=== PATIENT | female | born 1990 | race Caucasian/White ===

== ENCOUNTER 2020-05-05 14:37 | Emergency (ER) | payer SELFPAY ==
[2020-05-05 14:47] VITALS: BP 118/81; PULSE 89; RESP 18; TEMP 36.9; O2SAT 99; BMI 20.5
[2020-05-05 15:36] VITALS: O2SAT 99
--- NOTE | 2020-05-05 15:36 | CT_ITS ---
WS: [id number] CT abdomen pelvis w con* [id number] REASON FOR EXAM: abd pain IV CONTRAST ADMINISTERED: Omnipaque 300, 95 mL TOTAL EXAM DLP: 511.[address] scans at [facility] use at least one of these dose optimization techniques: automat ed exposure control; mA and/or kV adjustment per patient size (includes targeted exams where dose is matched to clinical indication); or iterative reconstruction. FINDINGS: The heart was normal. There is no inflammatory changes in the lower lungs. The liver showed no infiltrating changes. No masses. The gallbladder is somewhat contracted. There is considerable debris in the stomach. But no outlet obstructive changes. The spleen is normal. The right and left adrenal glands were normal. The aorta inferior vena cava were normal. The right and left kidneys show normal appearance no hydronephrosis no hydroureters no dilatation of the pelvis are ureters. The right colon shows fecal stasis the appendix was normal. Small large and small bowel pattern were normal. In the descending colon show no diverticular disease . In the pelvis a small ovarian cyst is seen measures 1.74 cm a thickened rind surrounds the cysts. The left side showed no adnexal masses. The uterus was normal. There is no free fluid in the cul-de-sac or pelvis seen. The rectosigmoid was normal. The urinary bladder was normal. The lumbar spine bony pelvis were normal. CT/CT abdomen pelvis w con* [id number] IMPRESSION: Benign right ovarian cyst The remaining abdomen pelvis appear to be normal.
--- NOTE | 2020-05-05 15:37 | ED_ITS ---
HPI - Abdominal Pain General: Chief Complaint: Abdominal Pain Stated Complaint: abd pain Time Seen by Provider: 05/05/20 14:54 History of Present Illness: HPI narrative: 29-year-old female clinically right lower quadrant abdominal pain for the last week. She has a history of ovarian cyst that she had which initially describes a tumor removed on the left and had something on the right she was Foltabs surgically treated but she was not able to do it due to some logistical and financial concerns. She has had a tubal ligation 2018 she had her last period ended 4 days ago she feels very heavy for her. She also endometriosis. She says a lot of nausea with no vomiting she denies any fever sweats or chills. She denies any urinary tract symptoms. She has had a very poor appetite. She states pain initially began in that right lower quadrant and has remained there. MD elicited complaint: abdominal pain Pertinent past history: other (Ovarian cysts) Onset (ago): week(s) (1) Pain Consistency: constant Location: RLQ Severity: severe Quality: cramping and stabbing Radiation: RLQ Exacerbating factors: movement Relieving factors: rest Associated Symptoms: Reports anorexia, bloating, GI cramping, nausea and poor appetite; Denies coffee ground emesis, constipation, diarrhea, dyspepsia, dysuria, fe shanon(s), heartburn, hematochezia, hematuria, hematemesis, fecal incontinence, loose stools, melena and vomiting Review of Systems Const: Denies: fever(s) ENMT: Denies: throat pain, ear or mastoid pain, nasal discharge or nasal congestion Card: Denies: chest pain, edema, dyspnea on exertion or orthopnea Resp: Denies: dyspnea, productive cough or non-productive cough GI: Reports: nausea, bloating and GI cramping; Denies: vomiting, hematemesis, coffee ground emesis, heartburn, diarrhea, constipation, fecal incontinence, hematochezia or melena : Denies: dysuria or hematuria Skin/Breast: Denies: rash or pruritus PFSH ED PFSH: Medical History (Updated 05/05/20 @ 17:03 by Loyd Smith DO) Endometriosis Tubal ligation evaluation Surgical History (Updated 05/05/20 @ 15:43 by Loyd Smith DO) History of left oophorectomy Previous section X3 Social History Smoking and tobacco status: current every day smoker Physical Exam Const: COMMON NORMALS: no acute distress GENERAL APPEARANCE: cooperative and comfortable ORIENTATION/CONSCIOUSNESS: Yes awake, Yes oriented to person, Yes oriented to place and Yes oriented to time HENMT: COMMON NORMALS: normocephalic, atraumatic, hearing grossly normal bilat erally, external ears normal, EAC's normal, TM's normal bilaterally, Normal nasal mucous membranes and turbinates present, moist oral mucous membranes and oropharynx normal HEAD & SCALP: normocephalic and atraumatic NOSE: Normal nasal mucous membranes and turbinates present EXTERNAL EAR: Yes external ears normal EXTERNAL AUDITORY CANAL: EAC's normal TYMPANIC MEMBRANE: TM's normal bilaterally Eye: COMMON NORMALS: Equal, round and reactive pupils present, EOMs intact bilaterally, conjunctivae normal and no scleral icterus CONJUNCTIVA: Yes conjunctivae normal PUPIL: Yes Equal, round and reactive pupils present Neck/C-Spine: COMMON NORMALS: full ROM, no lymphadenopathy, supple and no JVD Lymph: LYMPHATIC: no lymphadenopathy noted and no lymphedema noted Resp: COMMON NORMALS: normal respiratory effort, No retractions, No use of accessory muscles and clear to auscultation bilaterally AUSCULTATION: clear to auscultation bilaterally Cardio: COMMON NORMALS: no JVD, regular rate, regular rhythm and No murmurs present (Cardio) RATE: regular rate RHYTHM: regular rhythm GI: COMMON NORMALS: No hepatosplenomegaly present AUSCULTATION: Yes normoactive bowel sounds PALPATION: Yes Tenderness to palpation present (GI) Details: RLQ, Yes Guarding due to palpation present (GI), Yes No hepatosplenomegaly present and Yes Other GI palpation findings present (Positive Rovsing sign) PERCUSSION: Other (Severe pain to percussion of the right lower quadrant) Extremity: COMMON NORMALS: normal to inspection, capillary refill normal, no clubbing, cyanosis or edema, no calf tenderness and no pedal edema Neuro: SENSORIUM/ORIENTATION: Yes oriented to person, Yes oriented to place and Yes oriented to time Skin: COMMON NORMALS: no rashes or lesions noted GENERAL SKIN EXAM: no rashes or lesions noted Course Vital Signs: Vital signs: Vital Signs Temperature 98.5 F 05/05/20 14:47 Pulse Rate 75 05/05/20 17:50 Respiratory Rate 18 05/05/20 14:47 Blood Pressure 107/74 05/05/20 17:50 Pulse Oximetry 98 05/05/20 17:50 MDM - Abdominal Pain MDM Narrative: Medical decision making narrative: Small ovarian cyst on the left otherwise unremarkable at this point I think she can discharge home we will give her pain medications anti-inflammatories and Zofran minimal activity she tells me she has an appoint with Dr. Navas in the morning and think she should definitely keep that return if she has further problems Lab Data: Labs: Lab Results 05/05/20 05/05/20 05/05/20 Range/Units 15:40 15:40 15:40 WBC 4.3 (4.0-10.0) 10^3/ uL RBC 4.07 L (4.1-5.3) 10^6/u L Hgb 13.4 (11.5-15.3) g/dL Hct 41.4 (37.0-47.0) % MCV 101.7 H (81-99) fL MCH 32.9 (28.0-34.0) pg MCHC 32.4 (30.0-36.0) g/dL RDW 13.3 (12.1-15.1) % Plt Count 263 (130-400) 10^3/c mm MPV 10.1 (7.4-10.4) fL Neut % (Auto) 48.0 % Lymph % (Auto) 38.5 % [place] % (Auto) 9.4 % Eos % (Auto) 3.0 % Baso % (Auto) 0.9 % Neut # (Auto) 2.1 (1.8-7.7) 10^3/u L Lymph # (Auto) 1.7 (0.8-4.8) 10^3/u L [place] # (Auto) 0.4 (0.2-0.9) 10^3/u L Eos # (Auto) 0.1 (0.0-0.8) 10^3/u L Baso # (Auto) 0.0 (0.0-0.1) 10^3/u L Nucleated RBC % (a uto) 0 % Nucleated RBCs # 0.0 /100WBC Sodium 139 (136-145) mmol/L Potassium 4.1 (3.5-5.1) mmol/L Chloride 104 (98-107) mmol/L Carbon Dioxide 27 (22-29) mmol/L Anion Gap 12.1 (5-19) BUN 7 (6-20) mg/dL Creatinine 0.6 (0.5-0.9) mg/dL GFR Calculation 117.4 (90-130) mL/min Glucose 99 (65-115) mg/dL Calculated Osmolal ity 284 L (285-295) mOsm/k g Lactate 0.9 (0.5-2.2) mmol/L Calcium 9.6 (8.5-10.5) mg/dL Total Bilirubin 0.4 (0.15-1.2) mg/dL AST 15 (0-32) U/L ALT 9 (0-33) U/L Alkaline Phosphata se 56 (35-105) IU/L Total Protein 6.9 (6.6-8.7) g/dL Albumin 4.8 (3.5-5.2) g/dL Globulin 2.1 (1.3-4.6) g/dL Lipase 31 (13-60) U/L HCG, Qual (Negative) Urine Color (Yellow) Urine Appearance (CLEAR) Urine pH (5-7) Ur Specific Gravit y (1.005-1.030) Urine Protein (Negative) Urine Glucose (UA) (Normal) Urine Ketones (Negative) Urine Blood (Negative) Urine Nitrate (Negative) Urine Bilirubin (NEGATIVE) Urine Urobilinogen (Negative) mg/dL Ur Leukocyte Vashti ase (Negative) 05/05/20 05/05/20 Range/Units 16:49 16:49 WBC (4.0-10.0) 10^3/ uL RBC (4.1-5.3) 10^6/u L Hgb (11.5-15.3) g/dL Hct (37.0-47.0) % MCV (81-99) fL MCH (28.0-34.0) pg MCHC (30.0-36.0) g/dL RDW (12.1-15.1) % Plt Count (130-400) 10^3/c mm MPV (7.4-10.4) fL Neut % (Auto) % Lymph % (Auto) % [place] % (Auto) % Eos % (Auto) % Baso % (Auto) % Neut # (Auto) (1.8-7.7) 10^3/u L Lymph # (Auto) (0.8-4.8) 10^3/u L [place] # (Auto) (0.2-0.9) 10^3/u L Eos # (Auto) (0.0-0.8) 10^3/u L Baso # (Auto) (0.0-0.1) 10^3/u L Nucleated RBC % (a uto) % Nucleated RBCs # /100WBC Sodium (136-145) mmol/L Potassium (3.5-5.1) mmol/L Chloride (98-107) mmol/L Carbon Dioxide (22-29) mmol/L Anion Gap (5-19) BUN (6-20) mg/dL Creatinine (0.5-0.9) mg/dL GFR Calculation (90-130) mL/min Glucose (65-115) mg/dL Calculated Osmolal ity (285-295) mOsm/k g Lactate (0.5-2.2) mmol/L Calcium (8.5-10.5) mg/dL Total Bilirubin (0.15-1.2) mg/dL AST (0-32) U/L ALT (0-33) U/L Alkaline Phosphata se (35-105) IU/L Total Protein (6.6-8.7) g/dL Albumin (3.5-5.2) g/dL Globulin (1.3-4.6) g/dL Lipase (13-60) U/L HCG, Qual Negative (Negative) Urine Color Yellow (Yellow) Urine Appearance Clear (CLEAR) Urine pH 7 (5-7) Ur Specific Gravit y 1.010 (1.005-1.030) Urine Protein Neg (Negative) Urine Glucose (UA) Norm (Normal) Urine Ketones Negative (Negative) Urine Blood Neg (Negative) Urine Nitrate Negative (Negative) Urine Bilirubin Neg (NEGATIVE) Urine Urobilinogen Norm (Negative) mg/dL Ur Leukocyte Vashti ase Negative (Negative) Discharge Plan Discharge Patient Disposition: Home, Self-Care Clinical Impression: Ovarian cyst Condition: Stable Prescriptions: New hydrocodone-acetaminophen 5-325 mg tablet 1 tab PO Q6H PRN (Reason: pain) Qty: 10 RF: 0 Zofran 4 mg tablet 4 mg PO Q6H PRN (Reason: nausea and vomiting) Qty: 20 RF: 0 diclofenac sodium 75 mg tablet,delayed release (DR/EC) 75 mg PO Q12H PRN (Reason: pain) Qty: 20 RF: 0 Discharge Orders: Discharge Order (Routine); Ordered 05/05/20 Ordered By: Loyd Smith Referrals: Pierce Fuentes MD [Primary Care Provider] - Discharge Diet: Advance as tolerated Discharge Activity: Increase activity as tolerated Discharge Date/Time: 05/05/20 17:50 Coding Level of Care Code ED Rewrite Editor for Chg Fwd Exam Comprehensive
[2020-05-05 15:45] LABS: Basophils % 0.9 %; Eosinophils # 0.1 10^3/uL (0.0-0.8); Hematocrit 41.4 % (37.0-47.0); Hemoglobin 13.4 g/dL (11.5-15.3); Lymphocytes # 1.7 10^3/uL (0.8-4.8); Lymphocytes % 38.5 %; Mean Corpuscular HGB Conc 32.4 g/dL (30.0-36.0); Mean Corpuscular Hemoglobin 32.9 pg (28.0-34.0); Mean Corpuscular Volume 101.7 fL (81-99); Mean Platelet Volume 10.1 fL (7.4-10.4); Monocytes # 0.4 10^3/uL (0.2-0.9); Monocytes % 9.4 %; Neutrophils # 2.1 10^3/uL (1.8-7.7); Nucleated Red Blood Cells % 0 %; Platelet Count 263 10^3/cmm (130-400); Red Blood Count 4.07 10^6/uL (4.1-5.3); Red Cell Distribution Width 13.3 % (12.1-15.1); White Blood Count 4.3 10^3/uL (4.0-10.0)
[2020-05-05 16:02] LABS: Lactate (Lactic Acid level) 0.9 mmol/L (0.5-2.2)
[2020-05-05 16:03] LABS: Alanine Aminotransferase 9 U/L (0-33); Albumin Level 4.8 g/dL (3.5-5.2); Alkaline Phosphatase 56 IU/L (35-105); Anion Gap 12.1 (5-19); Aspartate Amino Transferase 15 U/L (0-32); Blood Urea Nitrogen 7 mg/dL (6-20); Calcium 9.6 mg/dL (8.5-10.5); Carbon Dioxide 27 mmol/L (22-29); Chloride 104 mmol/L (98-107); Globulin 2.1 g/dL (1.3-4.6); Glomerular Filtration Rate 117.4 mL/min (90-130); Glucose 99 mg/dL (65-115); Lipase 31 U/L (13-60); Osmolality Calculated 284 mOsm/kg (285-295); Potassium 4.1 mmol/L (3.5-5.1); Sodium 139 mmol/L (136-145); Total Bilirubin 0.4 mg/dL (0.15-1.2); Total Protein 6.9 g/dL (6.6-8.7)
[2020-05-05] MEDS: iohexol 300 mg/mL 100 mL Btl IV (16:39)
--- NOTE | 2020-05-05 16:41 | PC.NURSE ---
pt to ct by stretcher with tech
[2020-05-05] MEDS: ondansetron 2 mg/ML SDV 2 mL 4 MG IVP (16:52)
[2020-05-05] MEDS: sodium chloride 0.9% 1,000 ML 999 ML IV (16:52)
[2020-05-05] MEDS: morphine 4 mg/mL SDV 1 mL IVP (16:52)
[2020-05-05 16:56] VITALS: BP 132/87; PULSE 84; O2SAT 100
[2020-05-05 17:07] LABS: Add Urine Microscopic? NO
[2020-05-05 17:14] LABS: HCG Qualitative Urine. Negative (Negative)
[2020-05-05 17:15] LABS: Bilirubin Urine Neg (NEGATIVE); Blood Urine Neg (Negative); Glucose Urine UA Norm (Normal); Ketones Urine Negative (Negative); Leukocyte Esterase Urine Negative (Negative); Nitrate Urine Negative (Negative); Protein Urine Neg (Negative); Urine Appearance Clear (CLEAR); Urine Color Yellow (Yellow); Urobilinogen Urine Norm (Negative); pH Urine 7 (5-7)
[2020-05-05 17:50] VITALS: BP 107/74; PULSE 75; O2SAT 98
--- NOTE | 2020-05-05 17:50 | PC.NURSE ---
20g iv left ac space removed, tip intact, pressure dressing applied.
== END 2020-05-05 17:50 | disposition home or self-care (01) ==
PROVIDERS: Emergency Provider Family Medicine; Family Provider Family Medicine; PCP Family Medicine
DX: N83.201 Unspecified ovarian cyst, right side (principal); F17.210 Nicotine dependence, cigarettes, uncomplicated
CPT/HCPCS: 12345; 74177; 80053; 81003; 81025; 83605; 83690; 85025; 96361; 96374; 96375; 99283; J2270; J2405; J7030; Q9967

== ENCOUNTER 2021-03-25 13:53 | Inpatient (IN) | payer MEDICAID, SELFPAY ==
[2021-03-25] VITALS (55 sets, daily range): BP systolic 87–117; BP diastolic 52–73; PULSE 85–126; RESP 10–30; TEMP 37.2–38.4; O2SAT 96–100
--- NOTE | 2021-03-25 14:48 | ED_ITS ---
HPI - General Adult General: Chief complaint: General Medical Stated complaint: multiple complaints Time Seen by Provider: 03/25/21 14:30 Source: patient and family (fiance) Mode of arrival: ambulatory Limitations: no limitations History of Present Illness: HPI narrative: Patient is a 30-year-old female with a history of endometriosis and possible cervical cancer, as well as prior DVT who presents to the emergency department with complaints of right flank pain, generalized body aches, fever, hematemesis, hematuria. Symptoms have been ongoing for 4 days and she feels her symptoms are significantly worsening. Since she is worsening, she came to the ED to be evaluated. Onset (ago): day(s) (4) Location: abdomen and right Radiation: flank Severity: severe Quality: burning and stabbing Pain Consistency: constant Relieving factors: none Exacerbating factors: none Associated symptoms: Reports fevers/chills, malaise, nausea, vomiting and weakness; Deny chest pain, confusion, cough, diaphoresis, decreased appetite, dyspnea, headache(s), rash, palpitations, seizures, short of breath or syncope Treatments prior to arrival: none Review of Systems General: Reports: 10 or more systems reviewed and unremarkable except in HPI and below Const: Reports: malaise; Denies: diaphoresis Card: Denies: chest pain, palpitations or syncope Resp: Denies: dyspnea GI: Reports: nausea and vomiting Skin/Breast: Denies: rash Neuro: Denies: headache(s) or confusion [facility] ED PFSH: Medical History (Reviewed 04/13/21 @ 11:13 by Betty Serrano MD, [facility] [place]) Endometriosis Pyelonephritis of right kidney Tubal ligation evaluation Surgical History (Reviewed 04/13/21 @ 11:13 by Betty Serrano MD, [facility] [place]) History of left oophorectomy Previous section X3 Social History (Reviewed 04/13/21 @ 11:13 by Betty Serrano MD, [facility] [place]) Smoking and tobacco status: current every day smoker Female Reproductive History: Date of last menstrual period: 03/11/21 Physical Exam Const: COMMON NORMALS: no acute distress, average body habitus, patient oriented x3, no limitations, healthy appearing, alert and well nourished HENMT: COMMON NORMALS: normocephalic, atraumatic and moist oral mucous membranes HEAD & SCALP: normocephalic and atraumatic Neck/C-Spine: COMMON NORMALS: no meningeal signs and no JVD Resp: COMMON NORMALS: normal respiratory effort, No retractions, No use of accessory muscles, clear to auscultation bilaterally and percussion normal AUSCULTATION: clear to auscultation bilaterally PERCUSSION: percussion normal Cardio: COMMON NORMALS: no JVD, regular rhythm, S1 normal heart sound present, S2 normal heart sound present, No gallops present (Cardio), No clicks present (Cardio), No murmurs present (Cardio), No rub (Cardio) and Peripheral pulses 2+ throughout RATE: tachycardic RHYTHM: regular rhythm HEART SOUNDS: S1 normal heart sound present and S2 normal heart sound present PERIPHERAL PULSES: Peripheral pulses 2+ throughout GI: COMMON NORMALS: Normal to inspection, nondistended, normoactive bowel sounds present, Soft to palpation, non-tender, No hepatosplenomegaly present, no masses and no bruits PALPATION: Yes Soft to palpation and Yes No hepatosplenomegaly present : BLADDER/KIDNEY EXAM: Yes CVA tenderness Back/Pelvis: GENERAL BACK: Yes CVA tenderness CVA tenderness: right Extremity: COMMON NORMALS: normal to inspection, full ROM, capillary refill normal, no calf tenderness and no pedal edema Neuro: COMMON NORMALS: patient oriented x3 SENSORIUM/ORIENTATION: Yes alert MENINGEAL SIGNS: Yes no meningeal signs Skin: COMMON NORMALS: no rashes or lesions noted, no wounds, turgor normal, no jaundice, no petechiae and no mottling GENERAL SKIN EXAM: no rashes or lesions noted and turgor normal Course Reevaluation(s): Reevaluation #1: Discussed her labs and imaging findings with her. Advised that she is septic from pyelonephritis and will benefit from IV antibiotics and hospitalization. She voiced understanding and all questions answered. Time: 19:00 Consultations: Consultation #1: Discussed the patient with Dr. Ray, hospitalist and he kindly accepted the patient to his service. Time: 19:06 Vital Signs: Vital signs: Vital Signs Temperature 97.5 F L 03/31/21 14:41 Pulse Rate 69 03/31/21 14:41 Respiratory Rate 18 03/31/21 14:41 Blood Pressure 128/75 03/31/21 14:41 Pulse Oximetry 96 03/31/21 14:41 MDM - General Adult MDM Narrative: Medical decision making narrative: 30 year old female who presents to the ED with fever, chills, hematuria, hematemesis, tachycardia, lactic acidosis, and findings consistent with pyelonephritis. She is septic, and is admitted for further evaluation and management. She was given IV antibiotics and IV fluids in the ED. Medical Records: Attestation: I reviewed the patient's medical records. Lab Data: Attestation: I reviewed the patient's lab results. Labs: Lab Results 03/25/21 03/25/21 03/25/21 Range/Units 14:40 14:40 14:40 WBC 11.3 H (4.0-10.0) 10^3/ uL RBC 3.86 L (4.1-5.3) 10^6/u L Hgb 12.7 (11.5-15.3) g/dL Hct 36.0 L (37.0-47.0) % MCV 93.3 (81-99) fL MCH 32.9 (28.0-34.0) pg MCHC 35.3 (30.0-36.0) g/dL RDW 12.3 (12.1-15.1) % Plt Count 116 L (130-400) 10^3/c mm MPV 11.7 H (7.4-10.4) fL Neut % (Auto) 89.4 % Lymph % (Auto) 2.8 % Swisher % (Auto) 6.5 % Eos % (Auto) 0.0 % Baso % (Auto) 0.4 % Neut # (Auto) 10.09 H (1.8-7.7) 10^3/u L Lymph # (Auto) 0.3 L (0.8-4.8) 10^3/u L Swisher # (Auto) 0.7 (0.2-0.9) 10^3/u L Eos # (Auto) 0.0 (0.0-0.8) 10^3/u L Baso # (Auto) 0.1 (0.0-0.1) 10^3/u L Nucleated RBC % (a uto) 0 % Nucleated RBCs # 0.0 /100WBC PT 17.80 H (12.1-14.9) SECO NDS INR 1.43 H (0.8-1.2) D-Dimer 3.77 H (0-0.59) ug/mIFE U Sodium 131 L (136-145) mmol/L Potassium 3.2 L (3.5-5.1) mmol/L Chloride 92 L (98-107) mmol/L Carbon Dioxide 18 L (22-29) mmol/L Anion Gap 24.2 H (5-19) BUN 16 (6-20) mg/dL Creatinine 1.2 H (0.5-0.9) mg/dL GFR Calculation 52.4 L (90-130) mL/min Glucose 190 H (65-115) mg/dL Calculated Osmolal ity 278 L (285-295) mOsm/k g Lactate (0.5-2.2) mmol/L Calcium 8.2 L (8.5-10.5) mg/dL Total Bilirubin 0.4 (0.15-1.2) mg/dL AST 17 (0-32) U/L ALT 12 (0-33) U/L Alkaline Phosphata se 74 (35-105) IU/L Creatine Kinase 24 L (26-192) U/L C-Reactive Protein 275.2 H (0.0-4.9) mg/L Total Protein 6.8 (6.6-8.7) g/dL Albumin 3.7 (3.5-5.2) g/dL Globulin 3.1 (1.3-4.6) g/dL Lipase 12 L (13-60) U/L Procalcitonin 3.08 H (0-0.5) ng/mL HCG, Qual (Negative) Urine Color (Yellow) Urine Appearance (CLEAR) Urine pH (5-7) Ur Specific Gravit y (1.005-1.030) Urine Protein (Negative) Urine Glucose (UA) (Normal) Urine Ketones (Negative) Urine Blood (Negative) Urine Nitrate (Negative) Urine Bilirubin (Negative) Urine Urobilinogen (Negative) mg/dL Ur Leukocyte Vashti ase (Negative) Urine RBC (0-2) /hpf Urine WBC (0-5) /hpf Ur Squamous Epith Cells (0-5) /hpf Amorphous Sediment /hpf Urine Bacteria (NONE) /hpf Influenza Type A A g (Negative) Influenza Type B A g (Negative) SARS-CoV-2 Ag (Rap id) (Negative) Blood Type Rho(D) Type Antibody Screen 03/25/21 03/25/21 03/25/21 Range/Units 14:40 14:40 14:40 WBC (4.0-10.0) 10^3/ uL RBC (4.1-5.3) 10^6/u L Hgb (11.5-15.3) g/dL Hct (37.0-47.0) % MCV (81-99) fL MCH (28.0-34.0) pg MCHC (30.0-36.0) g/dL RDW (12.1-15.1) % Plt Count (130-400) 10^3/c mm MPV (7.4-10.4) fL Neut % (Auto) % Lymph % (Auto) % Swisher % (Auto) % Eos % (Auto) % Baso % (Auto) % Neut # (Auto) (1.8-7.7) 10^3/u L Lymph # (Auto) (0.8-4.8) 10^3/u L Swisher # (Auto) (0.2-0.9) 10^3/u L Eos # (Auto) (0.0-0.8) 10^3/u L Baso # (Auto) (0.0-0.1) 10^3/u L Nucleated RBC % (a uto) % Nucleated RBCs # /100WBC PT (12.1-14.9) SECO NDS INR (0.8-1.2) D-Dimer (0-0.59) ug/mIFE U Sodium (136-145) mmol/L Potassium (3.5-5.1) mmol/L Chloride (98-107) mmol/L Carbon Dioxide (22-29) mmol/L Anion Gap (5-19) BUN (6-20) mg/dL Creatinine (0.5-0.9) mg/dL GFR Calculation (90-130) mL/min Glucose (65-115) mg/dL Calculated Osmolal ity (285-295) mOsm/k g Lactate 6.1 H* (0.5-2.2) mmol/L Calcium (8.5-10.5) mg/dL Total Bilirubin (0.15-1.2) mg/dL AST (0-32) U/L ALT (0-33) U/L Alkaline Phosphata se (35-105) IU/L Creatine Kinase (26-192) U/L C-Reactive Protein (0.0-4.9) mg/L Total Protein (6.6-8.7) g/dL Albumin (3.5-5.2) g/dL Globulin (1.3-4.6) g/dL Lipase (13-60) U/L Procalcitonin (0-0.5) ng/mL HCG, Qual Negative (Negative) Urine Color (Yellow) Urine Appearance (CLEAR) Urine pH (5-7) Ur Specific Gravit y (1.005-1.030) Urine Protein (Negative) Urine Glucose (UA) (Normal) Urine Ketones (Negative) Urine Blood (Negative) Urine Nitrate (Negative) Urine Bilirubin (Negative) Urine Urobilinogen (Negative) mg/dL Ur Leukocyte Vashti ase (Negative) Urine RBC (0-2) /hpf Urine WBC (0-5) /hpf Ur Squamous Epith Cells (0-5) /hpf Amorphous Sediment /hpf Urine Bacteria (NONE) /hpf Influenza Type A A g (Negative) Influenza Type B A g (Negative) SARS-CoV-2 Ag (Rap id) (Negative) Blood Type A Positive Rho(D) Type Positive / 4+ Antibody Screen Negative 03/25/21 03/25/21 03/25/21 Range/Units 14:53 14:53 15:57 WBC (4.0-10.0) 10^3/ uL RBC (4.1-5.3) 10^6/u L Hgb (11.5-15.3) g/dL Hct (37.0-47.0) % MCV (81-99) fL MCH (28.0-34.0) pg MCHC (30.0-36.0) g/dL RDW (12.1-15.1) % Plt Count (130-400) 10^3/c mm MPV (7.4-10.4) fL Neut % (Auto) % Lymph % (Auto) % Swisher % (Auto) % Eos % (Auto) % Baso % (Auto) % Neut # (Auto) (1.8-7.7) 10^3/u L Lymph # (Auto) (0.8-4.8) 10^3/u L Swisher # (Auto) (0.2-0.9) 10^3/u L Eos # (Auto) (0.0-0.8) 10^3/u L Baso # (Auto) (0.0-0.1) 10^3/u L Nucleated RBC % (a uto) % Nucleated RBCs # /100WBC PT (12.1-14.9) SECO NDS INR (0.8-1.2) D-Dimer (0-0.59) ug/mIFE U Sodium (136-145) mmol/L Potassium (3.5-5.1) mmol/L Chloride (98-107) mmol/L Carbon Dioxide (22-29) mmol/L Anion Gap (5-19) BUN (6-20) mg/dL Creatinine (0.5-0.9) mg/dL GFR Calculation (90-130) mL/min Glucose (65-115) mg/dL Calculated Osmolal ity (285-295) mOsm/k g Lactate (0.5-2.2) mmol/L Calcium (8.5-10.5) mg/dL Total Bilirubin (0.15-1.2) mg/dL AST (0-32) U/L ALT (0-33) U/L Alkaline Phosphata se (35-105) IU/L Creatine Kinase (26-192) U/L C-Reactive Protein (0.0-4.9) mg/L Total Protein (6.6-8.7) g/dL Albumin (3.5-5.2) g/dL Globulin (1.3-4.6) g/dL Lipase (13-60) U/L Procalcitonin (0-0.5) ng/mL HCG, Qual (Negative) Urine Color Straw (Yellow) Urine Appearance Sl hazy (CLEAR) Urine pH 5 (5-7) Ur Specific Gravit y 1.005 (1.005-1.030) Urine Protein 1+ H (Negative) Urine Glucose (UA) Norm (Normal) Urine Ketones Negative (Negative) Urine Blood 3+ H (Negative) Urine Nitrate Negative (Negative) Urine Bilirubin Neg (Negative) Urine Urobilinogen Norm (Negative) mg/dL Ur Leukocyte Vashti ase Trace H (Negative) Urine RBC 0-4 H (0-2) /hpf Urine WBC 5-10 H (0-5) /hpf Ur Squamous Epith Cells 5-10 H (0-5) /hpf Amorphous Sediment 2+ /hpf Urine Bacteria Trace (NONE) /hpf Influenza Type A A g Negative (Negative) Influenza Type B A g Negative (Negative) SARS-CoV-2 Ag (Rap id) Negative (Negative) Blood Type Rho(D) Type Antibody Screen 03/25/21 Range/Units 17:56 WBC (4.0-10.0) 10^3/ uL RBC (4.1-5.3) 10^6/u L Hgb (11.5-15.3) g/dL Hct (37.0-47.0) % MCV (81-99) fL MCH (28.0-34.0) pg MCHC (30.0-36.0) g/dL RDW (12.1-15.1) % Plt Count (130-400) 10^3/c mm MPV (7.4-10.4) fL Neut % (Auto) % Lymph % (Auto) % Swisher % (Auto) % Eos % (Auto) % Baso % (Auto) % Neut # (Auto) (1.8-7.7) 10^3/u L Lymph # (Auto) (0.8-4.8) 10^3/u L Swisher # (Auto) (0.2-0.9) 10^3/u L Eos # (Auto) (0.0-0.8) 10^3/u L Baso # (Auto) (0.0-0.1) 10^3/u L Nucleated RBC % (a uto) % Nucleated RBCs # /100WBC PT (12.1-14.9) SECO NDS INR (0.8-1.2) D-Dimer (0-0.59) ug/mIFE U Sodium (136-145) mmol/L Potassium (3.5-5.1) mmol/L Chloride (98-107) mmol/L Carbon Dioxide (22-29) mmol/L Anion Gap (5-19) BUN (6-20) mg/dL Creatinine (0.5-0.9) mg/dL GFR Calculation (90-130) mL/min Glucose (65-115) mg/dL Calculated Osmolal ity (285-295) mOsm/k g Lactate 0.2 L (0.5-2.2) mmol/L Calcium (8.5-10.5) mg/dL Total Bilirubin (0.15-1.2) mg/dL AST (0-32) U/L ALT (0-33) U/L Alkaline Phosphata se (35-105) IU/L Creatine Kinase (26-192) U/L C-Reactive Protein (0.0-4.9) mg/L Total Protein (6.6-8.7) g/dL Albumin (3.5-5.2) g/dL Globulin (1.3-4.6) g/dL Lipase (13-60) U/L Procalcitonin (0-0.5) ng/mL HCG, Qual (Negative) Urine Color (Yellow) Urine Appearance (CLEAR) Urine pH (5-7) Ur Specific Gravit y (1.005-1.030) Urine Protein (Negative) Urine Glucose (UA) (Normal) Urine Ketones (Negative) Urine Blood (Negative) Urine Nitrate (Negative) Urine Bilirubin (Negative) Urine Urobilinogen (Negative) mg/dL Ur Leukocyte Vashti ase (Negative) Urine RBC (0-2) /hpf Urine WBC (0-5) /hpf Ur Squamous Epith Cells (0-5) /hpf Amorphous Sediment /hpf Urine Bacteria (NONE) /hpf Influenza Type A A g (Negative) Influenza Type B A g (Negative) SARS-CoV-2 Ag (Rap id) (Negative) Blood Type Rho(D) Type Antibody Screen Imaging Data^: Other CT: Attestation: I personally reviewed and interpreted this imaging study as follows: Radiologist's impression: [address] [id number] Scan ReportSigned Patient: Mallory Aquino #: [id number]: 1990Acct#:[id number]/Sex: FADM Date: 03/25/21Loc: ERRoom/Bed:Attending Dr: Ordering Provider/Ordering MD: Betty Serrano MD, [facility] [place] Date of Service: 03/25/21 Procedure(s): CT angio chest w abd pel w con Accession Number(s): [id number] Report Number: [id number] PROCEDURE INFORMATION: Exam: CTA Chest With Contrast Exam date and time: 03/25/2021 5:18 PM Age: 30 years old Clinical indication: Abdominal pain; Left-sided chest pain; Prior surgery; Surgery date: 6+ months; Surgery type: C-sect, L ooph; Patient HX: C/O cp, L flank pain, hematemisis, hematuria; Additional info: Chest pain, tachycardia, hematemsis TECHNIQUE: Imaging protocol: Computed tomographic angiography of the chest with contrast. 3D rendering (Not supervised by radiologist): MIP and/or 3D reconstructed images were created by the technologist. Radiation optimization: All CT scans at this facility use at least one of these dose optimization techniques: automated exposure control; mA and/or kV adjustment per patient size (includes targeted exams where dose is matched to clinical indication); or iterative reconstruction. Contrast material: OMNI 350; Contrast volume: 75 ml; Contrast route: INTRAVENOUS (IV); COMPARISON: CR Ribs RIGHT w PA Chest [id number] 04/27/2019 11:15 AM RADIATION DOSE METRICS: Total DLP (mGy-cm): 930.01 FINDINGS: Pulmonary arteries: No evidence of pulmonary embolus. Aorta: No acute abnormality. Lungs: No consolidation. No masses. Pleural spaces: Unremarkable. No pneumothorax. No pleural effusion. Heart: No cardiomegaly. No pericardial effusion. Lymph nodes: No enlarged lymph nodes. Bones/joints: No acute fracture. Soft tissues: Within normal limits. IMPRESSION: No acute findings. PROCEDURE INFORMATION: Exam: CT Abdomen And Pelvis With Contrast Exam date and time: 03/25/2021 5:18 PM Age: 30 years old Clinical indication: Abdominal pain; Left-sided chest pain; Prior surgery; Surgery date: 6+ months; Surgery type: C-sect, L ooph; Patient HX: C/O cp, L flank pain, hematemisis, hematuria; Additional info: Chest pain, tachycardia, hematemsis TECHNIQUE: Imaging protocol: Computed tomography of the abdomen and pelvis with contrast. Radiation optimization: All CT scans at this facility use at least one of these dose optimization techniques: automated exposure control; mA and/or kV adjustment per patient size (includes targeted exams where dose is matched to clinical indication); or iterative reconstruction. Contrast material: OMNI 350; Contrast volume: 75 ml; Contrast route: INTRAVENOUS (IV); COMPARISON: CR Ribs RIGHT w PA Chest [id number] 04/27/2019 11:15 AM RADIATION DOSE METRICS: Total DLP (mGy-cm): 930.01 FINDINGS: Lungs: The visualized lung bases are clear. Liver: Normal size and density. No focal mass. Gallbladder and bile ducts: No intrahepatic or extrahepatic biliary dilitation. No calcified stones. Pancreas: No evidence of mass. No ductal dilation. Spleen: No splenomegaly or mass. Adrenal glands: Normal. Kidneys and ureters: The right kidney is mildly relatively enlarged compared to the and shows indistinct areas of decreased enhancement. Borderline dilatation of the right ureter with slight urothelial enhancement. Mild right perinephric edema. No stones. The left kidney is normal in appearance. Stomach and bowel: No evidence of obstruction. No focal bowel wall thickening or mass. No significant diverticula. Appendix: No evidence of appendicitis. Intraperitoneal space: No free air. No free fluid or evidence of abscess. Vasculature: No concerning abnormalities. Lymph nodes: No lymphadenopathy. Urinary bladder: Normal CT appearance. Reproductive: Small left corpus luteum cyst. Bones/joints: No acute abnormality. Soft tissues: Within normal limits. CT/CT angio chest w abd pel w con IMPRESSION: 1. Findings suggest right pyelonephritis. The left kidney is normal in appearance. 2. Small left corpus luteum cyst. Radiation Dose CTDIVOL = (mGy): DLP = 930.01~930.01 (mGy-cm) Dictated By:Raj Meyer By:Raj Meyer Date/Time:03/25/211819DD/ 18 Critical Care Time Critical Care Time: Critical Care Time: Yes Total Critical Care Time: 60 Attestation: This case had a high probability of a clinically significant, sudden, or life threatening deterioration of this patient's condition which required my full and direct attention, intervention and personal management. Discharge Plan Discharge Patient Disposition: Admitted As Inpatient Admit Provider: Pasquale Ray Clinical Impression: Pyelonephritis Sepsis Qualifiers: Sepsis type: sepsis due to unspecified organism Sepsis acute organ dysfunction status: with acute organ dysfunction Severe sepsis acute organ dysfunction type: acute renal failure Acute renal failure type: unspecified Severe sepsis shock status: with septic shock Qualified Code(s): A41.9 - Sepsis, unspecified organism Condition: Stable Discharge Diet: Advance as tolerated Discharge Activity: Increase activity as tolerated Coding Level of Care Code ED Home Care Assistant for Kin Garcia
[2021-03-25] MEDS: ondansetron 2 mg/ML SDV 2 mL 4 MG IVP ×2 (15:01→21:39)
[2021-03-25] MEDS: morphine 4 mg/mL SDV 1 mL IVP (15:01)
[2021-03-25] MEDS: pantoprazole 40 mg SDV IVP (15:01)
[2021-03-25] MEDS: sodium chloride 0.9% 1,000 ML 999 ML IV ×3 (15:01→19:01)
[2021-03-25 15:11] LABS: Basophils # 0.1 10^3/uL (0.0-0.1); Basophils % 0.4 %; Hemoglobin 12.7 g/dL (11.5-15.3); Lymphocytes # 0.3 10^3/uL (0.8-4.8); Lymphocytes % 2.8 %; Mean Corpuscular HGB Conc 35.3 g/dL (30.0-36.0); Mean Corpuscular Hemoglobin 32.9 pg (28.0-34.0); Mean Corpuscular Volume 93.3 fL (81-99); Mean Platelet Volume 11.7 fL (7.4-10.4); Monocytes # 0.7 10^3/uL (0.2-0.9); Monocytes % 6.5 %; Neutrophils # 10.09 10^3/uL (1.8-7.7); Neutrophils % 89.4 %; Nucleated Red Blood Cells % 0 %; Platelet Count 116 10^3/cmm (130-400); Red Blood Count 3.86 10^6/uL (4.1-5.3); Red Cell Distribution Width 12.3 % (12.1-15.1); White Blood Count 11.3 10^3/uL (4.0-10.0)
[2021-03-25 15:17] LABS: INR 1.43 (0.8-1.2)
[2021-03-25 15:25] LABS: HCG, Serum Qual Negative (Negative)
[2021-03-25 15:27] LABS: D Dimer 3.77 ug/mIFEU (0-0.59)
[2021-03-25 15:32] LABS: Lactate (Lactic Acid level) 6.1 mmol/L (0.5-2.2)
[2021-03-25 15:33] LABS: Procalcitonin 3.08 ng/mL (0-0.5)
[2021-03-25 15:45] LABS: Alanine Aminotransferase 12 U/L (0-33); Albumin Level 3.7 g/dL (3.5-5.2); Alkaline Phosphatase 74 IU/L (35-105); Anion Gap 24.2 (5-19); Aspartate Amino Transferase 17 U/L (0-32); Blood Urea Nitrogen 16 mg/dL (6-20); C Reactive Protein 275.2 mg/L (0.0-4.9); Calcium 8.2 mg/dL (8.5-10.5); Carbon Dioxide 18 mmol/L (22-29); Chloride 92 mmol/L (98-107); Creatine Phosphokinase 24 U/L (26-192); Globulin 3.1 g/dL (1.3-4.6); Glomerular Filtration Rate 52.4 mL/min (90-130); Glucose 190 mg/dL (65-115); Lipase 12 U/L (13-60); Osmolality Calculated 278 mOsm/kg (285-295); Potassium 3.2 mmol/L (3.5-5.1); Sodium 131 mmol/L (136-145); Total Bilirubin 0.4 mg/dL (0.15-1.2); Total Protein 6.8 g/dL (6.6-8.7)
--- NOTE | 2021-03-25 15:49 | CTR_ITS ---
PROCEDURE INFORMATION: Exam: CTA Chest With Contrast Exam date and time: 03/25/2021 5:18 PM Age: 30 years old Clinical indication: Abdominal pain; Left-sided chest pain; Prior surgery; Surgery date: 6+ months; Surgery type: C-sect, L ooph; Patient HX: C/O cp, L flank pain, hematemisis, hematuria; Additional info: Chest pain, tachycardia, hematemsis TECHNIQUE: Imaging protocol: Computed tomographic angiography of the chest with contrast. 3D rendering (Not supervised by radiologist): MIP and/or 3D reconstructed images were created by the technologist. Radiation optimization: All CT scans at this facility use at least one of these dose optimization techniques: automated exposure control; mA and/or kV adjustment per patient size (includes targeted exams where dose is matched to clinical indication); or iterative reconstruction. Contrast material: OMNI 350; Contrast volume: 75 ml; Contrast route: INTRAVENOUS (IV); COMPARISON: CR Ribs RIGHT w PA Chest [id number] 04/27/2019 11:15 AM RADIATION DOSE METRICS: Total DLP (mGy-cm): 930.01 FINDINGS: Pulmonary arteries: No evidence of pulmonary embolus. Aorta: No acute abnormality. Lungs: No consolidation. No masses. Pleural spaces: Unremarkable. No pneumothorax. No pleural effusion. Heart: No cardiomegaly. No pericardial effusion. Lymph nodes: No enlarged lymph nodes. Bones/joints: No acute fracture. Soft tissues: Within normal limits. IMPRESSION: No acute findings. PROCEDURE INFORMATION: Exam: CT Abdomen And Pelvis With Contrast Exam date and time: 03/25/2021 5:18 PM Age: 30 years old Clinical indication: Abdominal pain; Left-sided chest pain; Prior surgery; Surgery date: 6+ months; Surgery type: C-sect, L ooph; Patient HX: C/O cp, L flank pain, hematemisis, hematuria; Additional info: Chest pain, tachycardia, hematemsis TECHNIQUE: Imaging protocol: Computed tomography of the abdomen and pelvis with contrast. Radiation optimization: All CT scans at this facility use at least one of these dose optimization techniques: automated exposure control; mA and/or kV adjustment per patient size (includes targeted exams where dose is matched to clinical indication); or iterative reconstruction. Contrast material: OMNI 350; Contrast volume: 75 ml; Contrast route: INTRAVENOUS (IV); COMPARISON: CR Ribs RIGHT w PA Chest [id number] 04/27/2019 11:15 AM RADIATION DOSE METRICS: Total DLP (mGy-cm): 930.01 FINDINGS: Lungs: The visualized lung bases are clear. Liver: Normal size and density. No focal mass. Gallbladder and bile ducts: No intrahepatic or extrahepatic biliary dilitation. No calcified stones. Pancreas: No evidence of mass. No ductal dilation. Spleen: No splenomegaly or mass. Adrenal glands: Normal. Kidneys and ureters: The right kidney is mildly relatively enlarged compared to the and shows indistinct areas of decreased enhancement. Borderline dilatation of the right ureter with slight urothelial enhancement. Mild right perinephric edema. No stones. The left kidney is normal in appearance. Stomach and bowel: No evidence of obstruction. No focal bowel wall thickening or mass. No significant diverticula. Appendix: No evidence of appendicitis. Intraperitoneal space: No free air. No free fluid or evidence of abscess. Vasculature: No concerning abnormalities. Lymph nodes: No lymphadenopathy. Urinary bladder: Normal CT appearance. Reproductive: Small left corpus luteum cyst. Bones/joints: No acute abnormality. Soft tissues: Within normal limits. CT/CT angio chest w abd pel w con IMPRESSION: 1. Findings suggest right pyelonephritis. The left kidney is normal in appearance. 2. Small left corpus luteum cyst. Radiation Dose CTDIVOL = (mGy): DLP = 930.01~930.01 (mGy-cm)
[2021-03-25 16:22] LABS: SARS Covid-2 Antigen Negative (Negative)
[2021-03-25] MEDS: piperacillin-tazobactam 3.375 GM in sodium chloride 0.9% (plus) 50 ML IV (16:34)
[2021-03-25 16:36] LABS: Glucose Urine UA Norm (Normal); Protein Urine 1+ (Negative); Specific Gravity, Urine 1.005 (1.005-1.030); Urine Appearance SL Hazy (CLEAR); Urine Color Straw (Yellow); pH Urine 5 (5-7)
[2021-03-25 16:37] LABS: Bilirubin Urine Neg (Negative); Blood Urine 3+ (Negative); Ketones Urine Negative (Negative); Nitrate Urine Negative (Negative); Urobilinogen Urine Norm (Negative)
[2021-03-25 16:38] LABS: Add Urine Microscopic? YES; Bacteria Urine TRACE /hpf; Leukocyte Esterase Urine Trace (Negative); RBC Urine 0-4 /hpf (0-2)
[2021-03-25 16:39] LABS: Add Urine Culture? No; Amorphous Sediment Urine 2+ /hpf
[2021-03-25 16:39] LABS: Influenza A by IFA Negative (Negative); Influenza B by IFA Negative (Negative)
[2021-03-25] MEDS: iohexol 350 mg/mL 100 mL Btl IV (17:38)
[2021-03-25] MEDS: acetaminophen 500 mg Tablet 1000 MG PO (17:54)
[2021-03-25 18:30] LABS: Lactate (Lactic Acid level) 0.2 mmol/L (0.5-2.2)
[2021-03-25] MEDS: ketorolac 30 mg/mL INJ IVP (19:01)
--- NOTE | 2021-03-25 19:45 | ECG_ITS ---
[facility] Test Date: 2021-03-25 Pat Name: Mallory Aquino Department: Room: ICU10 Gender: Female [employer]: : 1990 Requested By: Pasquale Masters Order Number: [id number] Reading MD: SHELLY AMEZQUITA Measurements Intervals [place] Rate: 95 P: 56 AK: 147 QRS: 56 QRSD: 87 T: 30 QT: 340 QTc: 429 Interpretive Statements SINUS RHYTHM NONSPECIFIC T-WAVE ABNORMALITY No previous ECG available for comparison Electronically Signed On 03-26-2021 21:17:07 CDT by SHELLY AMEZQUITA [id number]
--- NOTE | 2021-03-25 20:02 | PM.HP ---
Providers/Chief Complaint Admitting Physician: Pasquale Ray Chief Complaint: VOMITING, SHAKING, IN PAIN, FEVER (4 DAYS) History of Present Illness Mallory Aquino is a 30 year old female with no significant past medical history who presented to emergency room with complaints of generalized muscle aches, not feeling well, dysuria, hot flashes since last 5 days. She describes her symptoms as very severe. She reports associated intermittent l hematuria with occasional blood clots. Reports right flank pain which is sharp and severe. No modifying factors. Denies nausea or vomiting. Reports decreased appetite. No diarrhea. No vaginal pain or bleeding. Denies chest pain, shortness of breath, cough, palpitations. No similar episodes in the past. In the emergency room the patient has tachycardia, leukocytosis, fever, elevated lactic acid level. 2 boluses of NS were given. She reports feeling a little better. She also received morphine for pain. CT revealed picture consistent with right pyelonephritis. Review of Systems General: Reports: 10 or more systems reviewed and unremarkable except in HPI and below Medications/Allergies Home Medications Medication Instructions Recorded Confirmed Last Taken Type olbplntgv-JFO-LL-acetaminophen 1 - 2 cap PO PRN 03/25/21 03/25/21 Unknown History [NyQuil Liquicaps] bsavpbwxo-SBW-OD-acetaminophen 30 ml PO PRN 03/25/21 03/25/21 03/24/21 History [NyQuil] ibuprofen 800 mg PO PRN 03/25/21 03/25/21 03/24/21 History Allergies Allergy/AdvReac Type Severity Reaction Status Date / Time No Known Allergies Allergy Verified 03/25/21 15:11 PFSH Acute PFSH: Medical History (Updated 05/13/20 @ 00:00 by ) Endometriosis Tubal ligation evaluation Surgical History (Updated 05/05/20 @ 15:43 by Loyd Smith DO) History of left oophorectomy Previous section X3 Social History Smoking and tobacco status: current every day smoker Female Reproductive History: Date of last menstrual period: 03/11/21 Vitals/I&O/Wt Last Vital Signs Temp 99 F 03/25/21 19:57 Pulse 91 03/25/21 19:57 Resp 20 H 03/25/21 19:57 BP 96/58 03/25/21 19:57 Pulse Ox 99 03/25/21 19:57 03/25/21 03/25/21 03/25/21 06:59 14:59 22:59 Intake Total 2049 Balance 2049 Weight last 48 hrs Weight 54.431 kg Physical Exam Narrative: EXAM NARRATIVE: The patient is awake alert oriented. Moderate acute distress. Mood and affect are appropriate and responses are adequate. Skin is warm and dry. Moist implements Eyes PERRL, extraocular muscles are intact. No icterus. Neck supple. No JVD Lungs are clear to auscultation bilaterally. No wheezes or crackles Heart S1, S2, regular tachycardia Abdomen is soft, nontender, bowel sounds are present. Right CVA tenderness on percussion. Extremities no edema cyanosis or calf tenderness bilaterally Normal speech No focal weakness. Data : 03/25/21 14:40 03/25/21 14:40 Other Labs: Laboratory Results WBC 11.3 10^3/uL (4.0-10.0) H 03/25/21 14:40 RBC 3.86 10^6/uL (4.1-5.3) L 03/25/21 14:40 Hgb 12.7 g/dL (11.5-15.3) 03/25/21 14:40 Hct 36.0 % (37.0-47.0) L 03/25/21 14:40 MCV 93.3 fL (81-99) 03/25/21 14:40 MCH 32.9 pg (28.0-34.0) 03/25/21 14:40 MCHC 35.3 g/dL (30.0-36.0) 03/25/21 14:40 RDW 12.3 % (12.1-15.1) 03/25/21 14:40 Plt Count 116 10^3/cmm (130-400) L 03/25/21 14:40 MPV 11.7 fL (7.4-10.4) H 03/25/21 14:40 Neut % (Auto) 89.4 % 03/25/21 14:40 Lymph % (Auto) 2.8 % 03/25/21 14:40 Harding % (Auto) 6.5 % 03/25/21 14:40 Eos % (Auto) 0.0 % 03/25/21 14:40 Baso % (Auto) 0.4 % 03/25/21 14:40 Neut # (Auto) 10.09 10^3/uL (1.8-7.7) H 03/25/21 14:40 Lymph # (Auto) 0.3 10^3/uL (0.8-4.8) L 03/25/21 14:40 Harding # (Auto) 0.7 10^3/uL (0.2-0.9) 03/25/21 14:40 Eos # (Auto) 0.0 10^3/uL (0.0-0.8) 03/25/21 14:40 Baso # (Auto) 0.1 10^3/uL (0.0-0.1) 03/25/21 14:40 Nucleated RBC % (auto) 0 % 03/25/21 14:40 Nucleated RBCs # 0.0 /100WBC 03/25/21 14:40 PT 17.80 SECONDS (12.1-14.9) H 03/25/21 14:40 INR 1.43 (0.8-1.2) H 03/25/21 14:40 D-Dimer 3.77 ug/mIFEU (0-0.59) H 03/25/21 14:40 Sodium 131 mmol/L (136-145) L 03/25/21 14:40 Potassium 3.2 mmol/L (3.5-5.1) L 03/25/21 14:40 Chloride 92 mmol/L (98-107) L 03/25/21 14:40 Carbon Dioxide 18 mmol/L (22-29) L 03/25/21 14:40 Anion Gap 24.2 (5-19) H 03/25/21 14:40 BUN 16 mg/dL (6-20) 03/25/21 14:40 Creatinine 1.2 mg/dL (0.5-0.9) H 03/25/21 14:40 GFR Calculation 52.4 mL/min (90-130) L 03/25/21 14:40 Glucose 190 mg/dL (65-115) H 03/25/21 14:40 Calculated Osmolality 278 mOsm/kg (285-295) L 03/25/21 14:40 Lactate 0.2 mmol/L (0.5-2.2) L 03/25/21 17:56 Calcium 8.2 mg/dL (8.5-10.5) L 03/25/21 14:40 Total Bilirubin 0.4 mg/dL (0.15-1.2) 03/25/21 14:40 AST 17 U/L (0-32) 03/25/21 14:40 ALT 12 U/L (0-33) 03/25/21 14:40 Alkaline Phosphatase 74 IU/L (35-105) 03/25/21 14:40 Creatine Kinase 24 U/L (26-192) L 03/25/21 14:40 C-Reactive Protein 275.2 mg/L (0.0-4.9) H 03/25/21 14:40 Total Protein 6.8 g/dL (6.6-8.7) 03/25/21 14:40 Albumin 3.7 g/dL (3.5-5.2) 03/25/21 14:40 Globulin 3.1 g/dL (1.3-4.6) 03/25/21 14:40 Lipase 12 U/L (13-60) L 03/25/21 14:40 Procalcitonin 3.08 ng/mL (0-0.5) H 03/25/21 14:40 HCG, Qual Negative (Negative) 03/25/21 14:40 Urine Color Straw (Yellow) 03/25/21 15:57 Urine Appearance Sl hazy (CLEAR) 03/25/21 15:57 Urine pH 5 (5-7) 03/25/21 15:57 Ur Specific Browning 1.005 (1.005-1.030) 03/25/21 15:57 Urine Protein 1+ (Negative) H 03/25/21 15:57 Urine Glucose (UA) Norm (Normal) 03/25/21 15:57 Urine Ketones Negative (Negative) 03/25/21 15:57 Urine Blood 3+ (Negative) H 03/25/21 15:57 Urine Nitrate Negative (Negative) 03/25/21 15:57 Urine Bilirubin Neg (Negative) 03/25/21 15:57 Urine Urobilinogen Norm mg/dL (Negative) 03/25/21 15:57 Ur Leukocyte Esterase Trace (Negative) H 03/25/21 15:57 Urine RBC 0-4 /hpf (0-2) H 03/25/21 15:57 Urine WBC 5-10 /hpf (0-5) H 03/25/21 15:57 Ur Squamous Epith Cells 5-10 /hpf (0-5) H 03/25/21 15:57 Amorphous Sediment 2+ /hpf 03/25/21 15:57 Urine Bacteria Trace /hpf (NONE) 03/25/21 15:57 Influenza Type A Ag Negative (Negative) 03/25/21 14:53 Influenza Type B Ag Negative (Negative) 03/25/21 14:53 SARS-CoV-2 Ag (Rapid) Negative (Negative) 03/25/21 14:53 Blood Type A Positive 03/25/21 14:40 Rho(D) Type Positive / 4+ 03/25/21 14:40 Antibody Screen Negative 03/25/21 14:40 Impressions Chest/Abdomen/Pelvis CT 03/25/21 15:49 IMPRESSION: 1. Findings suggest right pyelonephritis. The left kidney is normal in appearance. 2. Small left corpus luteum cyst. Radiation Dose CTDIVOL = (mGy): DLP = 930.01~930.01 (mGy-cm) Micro: Microbiology 03/25/21 14:40 Blood Culture - Preliminary Blood SPECIMEN COLLECTED A&P Additional A&P Information 30-year-old female with past medical history of endometriosis and no other chronic medical conditions who presents with fever, chills, dysuria, right flank pain, muscle aches. Severe sepsis secondary to urinary tract infection/pyelonephritis. Lactic acid level improved with 2 boluses of NS. We will admit her for IV fluids and IV antibiotics. She will require close monitoring. We will continue Zosyn, IV fluids and as needed medication. Blood cultures taken. Will order urine culture. We will continue monitoring CBC, chemistry panel, lactic acid level and procalcitonin which was elevated on presentation. Hypokalemia. Will replace and monitor. We will also provide magnesium. Hyponatremia secondary to dehydration. Will monitor. Will treat with IV fluids. Thrombocytopenia probably secondary to sepsis. Mild. Will monitor. Mild acute kidney injury secondary to sepsis. Will hydrate and monitor. Lactic acidosis secondary to severe sepsis. Will manage with IV fluids and monitor chemistry panel and lactic acid level. Tachycardia secondary to sepsis. Improved heart rate with IV fluids. Will order EKG for baseline. DVT prophylaxis. Teds and SCDs. Early ambulation. CODE STATUS. She wants to be full code. The plan of care was discussed with the patient and her at the bedside. They verbalized understanding and agreement. Attestations Medical Necessity Statement*: Based on my assessment of patient's presenting symptoms and findings the patient will require more than 2 midnights in the hospital. Coding Level of Care Code Acute Bone Char Kiln Operator for Kin Garcia
[2021-03-25] MEDS: potassium chloride premix 100 ML 25 MEQ IV (21:03)
[2021-03-25] MEDS: sodium chlor 0.9% + KCl 20 mEq 20 MEQ/1,000 ML BAG 150 MEQ IV (21:08)
[2021-03-26] VITALS (105 sets, daily range): BP systolic 74–130; BP diastolic 46–96; PULSE 76–128; RESP 11–42; TEMP 36.8–39.4; O2SAT 92–100
[2021-03-26] MEDS: piperacillin-tazobactam 3.375 GM in sodium chloride 0.9% (plus) 50 ML IV ×3 (00:53→16:14)
[2021-03-26] MEDS: morphine 4 mg/mL SDV 1 mL 2 MG IVP ×3 (01:11→22:45)
[2021-03-26] MEDS: sodium chlor 0.9% + KCl 20 mEq 20 MEQ/1,000 ML BAG 150 MEQ IV ×4 (04:12→22:45)
[2021-03-26 06:19] LABS: Hemoglobin 11.6 g/dL (11.5-15.3); Mean Corpuscular HGB Conc 33.1 g/dL (30.0-36.0); Mean Corpuscular Hemoglobin 32.5 pg (28.0-34.0); Platelet Count 93 10^3/cmm (130-400); Red Blood Count 3.57 10^6/uL (4.1-5.3); Red Cell Distribution Width 12.9 % (12.1-15.1); White Blood Count 8.1 10^3/uL (4.0-10.0)
--- NOTE | 2021-03-26 06:26 | PC.NURSE ---
SHIFT SUMMARY Patient slept very little all evening and has severe pain located on the right side of the body. Took one bite of a kia cracker after arriving on the unit at 2007 but reports no appetite to consume food. Reports pressure in the lower stomach when urinating and pain upon palpation. Patient received some relief from pain when given 0.5 mg morphine.
[2021-03-26 06:43] LABS: Lactic Sepsis W/Reflex 1.5 mmol/L (0.5-2.2)
[2021-03-26 06:53] LABS: Absolute Segmented Neutrophil 4.4 10/cmm (1.6-7.1); Band Neutrophils Absolute 2.1 10^3/cmm (0.0-1.2); Segmented Neutrophils 54 %; Slide Review Slide Review Perform; Total Cells Counted 100 (0-100)
[2021-03-26 06:54] LABS: Absolute Neutrophil 6.5 10^3/cmm (1.4-6.5); Eosinophils 0 %; Lymphocytes 12 %; Monocytes Absolute 0.4 10^3/cmm (0.1-0.6); Platelet Estimate Decreased (Normal); Procalcitonin 4.72 ng/mL (0-0.5)
[2021-03-26 06:55] LABS: Burr Cells Trace; Polychromasia Trace
[2021-03-26 07:06] LABS: Alanine Aminotransferase 13 U/L (0-33); Albumin Level 3.5 g/dL (3.5-5.2); Alkaline Phosphatase 68 IU/L (35-105); Anion Gap 16.7 (5-19); Aspartate Amino Transferase 18 U/L (0-32); Blood Urea Nitrogen 11 mg/dL (6-20); Calcium 7.7 mg/dL (8.5-10.5); Carbon Dioxide 20 mmol/L (22-29); Chloride 101 mmol/L (98-107); Globulin 3.2 g/dL (1.3-4.6); Glucose 100 mg/dL (65-115); Magnesium 2.1 mg/dL (1.7-2.3); Osmolality Calculated 277 mOsm/kg (285-295); Phosphorus 1.8 mg/dL (2.5-4.5); Potassium 3.7 mmol/L (3.5-5.1); Sodium 134 mmol/L (136-145); Total Bilirubin 0.7 mg/dL (0.15-1.2); Total Protein 6.7 g/dL (6.6-8.7)
[2021-03-26] MEDS: acetaminophen 325 mg Tablet 650 MG PO (08:29)
[2021-03-26] MEDS: ibuprofen 200 mg Tablet 400 MG PO (10:02)
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
--- NOTE | 2021-03-26 10:37 | PC.CHAP ---
Pastoral Care Encounter/Spiritual Assessment Type of Contact [] Declined membership sales advisor visit [] Patient/Family/Request visit [] Outpatient visit [] Follow-up visit [] Physician referral [] Code/Alert [XX] Routine visit [] Staff referral [] Actively dying [XX] Patient sleeping [] Family support [] [] Out of room [] Palliative care [] [] Receiving care in room [] Pre-surgical visit [] Trauma [] Long length of stay [XX] ICU visit [] Other: Relational/Emotional Strength [] Patient feels connected with others/family/visitors/staff [] Distress [] Loneliness/isolation [] Abandonment Spirituality of Patient [] Person of Anna [] Attends Mormon of their Anna [] Believes in Prayer [] Reads Bible or Mormon materials [] There are Spiritual issues to be addressed Network Strategist Interventions [] Prayer [] Active listening [] Non-anxious presence [] Spiritual/emotional support [] Crisis/trauma care [] Spiritual counseling [] Bereavement support [] Provided bereavement packet [] Provided Bible/devotional materials [] Provided toy/stuffed animal, coloring book to patient or family member [] Provided Communion [] Anointing/Pollock [] Salvation [] Completed spiritual assessment [] Other: Impact on Illness or Injury [] Angry [] Fearful [] Anxious [] Often cries [] Exhaustion [] Unable to work [] Unable to attend jainism [] Unable to walk/stand [] Unable to read [] Unable to drive [] Unable to eat/drink [] Unable to sleep [] Unable to be with family [] Patient intubated [] Other: Summary Time spent with patient
--- NOTE | 2021-03-26 10:43 | PC.NURSE ---
Temperature at 0800 was 103.0. Tylenol was given and fever was rechecked at 101.5. PRN ibuprofen was given and recheck was 98.5
--- NOTE | 2021-03-26 10:59 | P.PN_ITS ---
Subjective Subjective: Interval history: Patient was examined this morning, in ICU, boyfriend is at bedside, she tells me that recently they were evicted, they are currently living out of a hotel, she has been having diffuse muscle aches and pains, high fevers, they have not been breaking, she tells me also her abdomen and her back has been hurting her, in her lower pelvis, it hurt when she has to pee, she also tells me that she has been more confused, the last time she had a urinary tract infection was when she was 11, no history of nephrolithiasis Vitals/I&O/Wt Last Vital Signs Temp 101.5 F H 03/26/21 10:28 Pulse 98 03/26/21 10:15 Resp 27 H 03/26/21 10:15 BP 108/54 03/26/21 10:15 Pulse Ox 95 03/26/21 10:15 03/25/21 03/26/21 03/26/21 22:59 06:59 14:59 Intake Total 2102 / 2102 2150 / 4252 812.5 / 812.5 Output Total 650 / 650 200 / 200 Balance 210 / 210 1500 / 3602 612.5 / 612.5 Weight last 48 hrs Weight 54.431 kg Physical Exam Const: GENERAL APPEARANCE: cooperative and ill appearing ORIENTATION/CONSCIOUSNESS: Yes awake, Yes oriented to person, Yes oriented to place and Yes oriented to time Resp: COMMON NORMALS: normal respiratory effort, No retractions, No use of accessory muscles and clear to auscultation bilaterally AUSCULTATION: clear to auscultation bilaterally Cardio: COMMON NORMALS: regular rhythm, S1 normal heart sound present and S2 normal heart sound present RATE: tachycardic RHYTHM: regular rhythm HEART SOUNDS: S1 normal heart sound present and S2 normal heart sound present GI: COMMON NORMALS: Normal to inspection, nondistended, normoactive bowel sounds present, Soft to palpation, non-tender and No hepatosplenomegaly present PALPATION: Yes Soft to palpation and Yes No hepatosplenomegaly present Extremity: COMMON NORMALS: no pedal edema Neuro: SENSORIUM/ORIENTATION: Yes oriented to person, Yes oriented to place and Yes oriented to time Data : 03/26/21 05:50 03/26/21 05:50 Micro: Microbiology 03/26/21 05:50 Blood Culture - Preliminary Blood SPECIMEN COLLECTED 03/25/21 14:40 Blood Culture - Preliminary Blood SPECIMEN COLLECTED A&P Assessment and plan (1) Pyelonephritis of right kidney: -With severe sepsis, KARLI, lactic acidosis,, hypokalemic hyponatremia, thrombocytopenia, tachycardia, elevated INR, elevated D-dimer -I did have urology review CT scan, no significant signs of obstructive uropathy -CRP 275, pro-Trav 4.72 Plan: -Needs continued ICU monitoring -Tylenol, ibuprofen, Ativan for fevers -Monitor urine output, monitor hemodynamics -Broaden antibiotic coverage to vancomycin, continue Zosyn -Continue IV fluids at 150 cc an hour, maintain MAP greater than 65 -Follow urine cultures, blood cultures -Full code -SCDs, Walt for DVT prophylaxis Status: Acute (2) Sepsis: Status: Acute (3) Acute kidney injury: Status: Acute (4) Lactic acidosis: Status: Acute (5) Hypokalemia: Status: Acute (6) Hyponatremia: Status: Acute (7) Thrombocytopenia: Status: Acute Additional A&P Information 30-year-old female with past medical history of endometriosis and no other chronic medical conditions who presents with fever, chills, dysuria, right flank pain, muscle aches. DVT prophylaxis. Teds and SCDs. Early ambulation. CODE STATUS. She wants to be full code. The plan of care was discussed with the patient and her at the bedside. They verbalized understanding and agreement. Attestations 2 Medical Necessity Statement*: Patient requires hospitalization, for pyelonephritis right kidney, with severe sepsis, lactic acidosis,, requiring ICU admission, critical care time spent over 40 minutes Coding Level of Care Code Acute University Registrar for Kin Garcia Diagnoses Pyelonephritis of right kidney N12 Sepsis A41.9 Acute kidney injury N17.9 Lactic acidosis E87.2 Hypokalemia E87.6 Hyponatremia E87.1 Thrombocytopenia D69.6
[2021-03-26] MEDS: phosphorus 250 mg Tablet PO ×2 (12:07→17:47)
[2021-03-26] MEDS: vancomycin 750 MG in sodium chloride 0.9% 250 ML 250 MG IV (12:07)
--- NOTE | 2021-03-26 13:03 | PC.NURSE ---
500 mL bolus of IV fluids was given from bag that was already running per verbal order from Dr. Jimenez.
[2021-03-26] MEDS: HYDROcodone-acetaminophen 5-325 mg Tablet 1 TAB PO ×2 (16:14→20:04)
--- NOTE | 2021-03-26 18:03 | PC.NURSE ---
Visitor has been at bedside multiple different times this shift. Patient is able to transfer to bedside commode with a one person assist. Pain medication has been given once this shift.
[2021-03-27] VITALS (27 sets, daily range): BP systolic 85–116; BP diastolic 51–86; PULSE 69–112; RESP 2–40; TEMP 36.6–39.3; O2SAT 80–98
[2021-03-27] MEDS: vancomycin 750 MG in sodium chloride 0.9% 250 ML 250 MG IV (00:17)
[2021-03-27] MEDS: HYDROcodone-acetaminophen 5-325 mg Tablet 1 TAB PO ×3 (00:25→09:41)
[2021-03-27] MEDS: ibuprofen 200 mg Tablet 400 MG PO (00:26)
--- NOTE | 2021-03-27 00:29 | PC.NURSE ---
Fever/Chills Pt having vigorous chills. Temp 101.5. Pt reports pain to abdomen and flank rating pain at 9/10.
[2021-03-27] MEDS: piperacillin-tazobactam 3.375 GM in sodium chloride 0.9% (plus) 50 ML IV ×3 (01:49→17:01)
[2021-03-27] MEDS: sodium chlor 0.9% + KCl 20 mEq 20 MEQ/1,000 ML BAG 150 MEQ IV ×3 (05:23→22:19)
[2021-03-27] MEDS: phosphorus 250 mg Tablet PO ×2 (08:01→17:01)
--- NOTE | 2021-03-27 08:38 | PM.PN ---
Subjective Subjective: Interval history: She is overall feeling slightly better, but still could not sleep very much. Abdominal discomfort, right-sided back/flank pain. Hurting with urination. Having some cough. Vitals/I&O/Wt Last Vital Signs Temp 97.8 F 03/27/21 08:00 Pulse 69 03/27/21 06:00 Resp 15 03/27/21 06:00 BP 88/57 03/27/21 06:00 Pulse Ox 94 03/27/21 08:00 03/26/21 03/27/21 03/27/21 22:59 06:59 14:59 Intake Total 2787.5 / 3650.0 1655 / 5305.0 240 / 240 Output Total 775 / 975 Balance 2012.5 / 2675.0 1655 / 4330.0 240 / 240 Weight last 48 hrs Weight 54.431 kg Physical Exam Const: COMMON NORMALS: no acute distress OTHER: Sleeping. Wakes up to voice. In some discomfort. HENMT: COMMON NORMALS: oropharynx normal Neck/C-Spine: COMMON NORMALS: no JVD Resp: COMMON NORMALS: normal respiratory effort and clear to auscultation bilaterally AUSCULTATION: clear to auscultation bilaterally Cardio: COMMON NORMALS: no JVD, regular rhythm, S1 normal heart sound present, S2 normal heart sound present and No murmurs present (Cardio) RHYTHM: regular rhythm HEART SOUNDS: S1 normal heart sound present and S2 normal heart sound present GI: COMMON NORMALS: Normal to inspection, nondistended, normoactive bowel sounds present and Soft to palpation PALPATION: Yes Soft to palpation and Yes Tenderness to palpation present (GI) (Mild tenderness to palpation) Extremity: COMMON NORMALS: no joint enlargement and no pedal edema Neuro: COMMON NORMALS: moves all extremities Skin: COMMON NORMALS: no rashes or lesions noted GENERAL SKIN EXAM: no rashes or lesions noted Data : 03/26/21 05:50 03/26/21 05:50 Micro: Microbiology 03/26/21 05:50 Blood Culture - Preliminary Blood NEGATIVE TO DATE 03/25/21 14:40 Blood Culture - Preliminary Blood NEGATIVE TO DATE A&P Assessment and plan (1) Pyelonephritis of right kidney: Somewhat slow improvement, but is gradually getting better. Sepsis resolving. Leukocytosis is normalized now. Still having low-grade fever this morning. 100.2 Fahrenheit. Subjectively overall feels slightly better. Continues with abdominal discomfort, right flank pain. So far no growth on urine culture. Follow-up results. Continue broad-spectrum antibiotic coverage for now with Zosyn, vancomycin. Blood pressure soft, 67 mean arterial pressure. Continue IV fluids for now. Oral intake is tolerating. With soft blood pressure for now monitor in ICU. If improving may transfer for further care to medical floor. Symptomatic control of pain. Status: Acute (2) Sepsis: Resolving. Status: Acute (3) Acute kidney injury: Status: Acute (4) Lactic acidosis: Status: Acute (5) Hypokalemia: Status: Acute (6) Hyponatremia: Status: Acute (7) Thrombocytopenia: Status: Acute Attestations Medical Necessity Statement*: Continue admission for assessment of management of complicated urinary tract infection, acute pyelonephritis, resolving sepsis. Coding Level of Care Code Acute It Support Consultant for [facility] Diagnoses Pyelonephritis of right kidney N12 Sepsis A41.9 Acute kidney injury N17.9 Lactic acidosis E87.2 Hypokalemia E87.6 Hyponatremia E87.1 Thrombocytopenia D69.6
[2021-03-27 11:55] LABS: Vancomycin Trough 7.5 ug/mL (10-15)
[2021-03-27] MEDS: vancomycin 1,000 MG in sodium chloride 0.9% 250 ML 250 MG IV (12:48)
[2021-03-27] MEDS: morphine 4 mg/mL SDV 1 mL 2 MG IVP ×2 (14:18→23:03)
--- NOTE | 2021-03-27 16:13 | PC.RESP ---
Smoking Cessation information sent to patient.
[2021-03-27] MEDS: acetaminophen 325 mg Tablet 650 MG PO (17:59)
[2021-03-28] VITALS (19 sets, daily range): BP systolic 102–140; BP diastolic 60–92; PULSE 64–91; RESP 10–36; TEMP 36.7–37.2; O2SAT 90–99
[2021-03-28] MEDS: piperacillin-tazobactam 3.375 GM in sodium chloride 0.9% (plus) 50 ML IV ×3 (00:39→17:16)
[2021-03-28] MEDS: vancomycin 1,000 MG in sodium chloride 0.9% 250 ML 250 MG IV ×2 (01:13→13:26)
[2021-03-28] MEDS: HYDROcodone-acetaminophen 5-325 mg Tablet 1 TAB PO ×2 (04:20→17:16)
[2021-03-28 04:26] LABS: Basophils % 0.4 %; Eosinophils # 0.1 10^3/uL (0.0-0.8); Eosinophils % 0.9 %; Hematocrit 29.5 % (37.0-47.0); Hemoglobin 9.6 g/dL (11.5-15.3); Lymphocytes # 0.9 10^3/uL (0.8-4.8); Lymphocytes % 15.7 %; Mean Corpuscular HGB Conc 32.5 g/dL (30.0-36.0); Mean Corpuscular Hemoglobin 32.4 pg (28.0-34.0); Mean Corpuscular Volume 99.7 fL (81-99); Mean Platelet Volume 11.8 fL (7.4-10.4); Monocytes # 0.5 10^3/uL (0.2-0.9); Monocytes % 9.3 %; Neutrophils # 4.02 10^3/uL (1.8-7.7); Neutrophils % 73.3 %; Nucleated Red Blood Cells % 0 %; Platelet Count 93 10^3/cmm (130-400); Red Blood Count 2.96 10^6/uL (4.1-5.3); Red Cell Distribution Width 13.9 % (12.1-15.1); White Blood Count 5.5 10^3/uL (4.0-10.0)
[2021-03-28 04:40] LABS: Alanine Aminotransferase 17 U/L (0-33); Albumin Level 2.4 g/dL (3.5-5.2); Alkaline Phosphatase 66 IU/L (35-105); Anion Gap 10.8 (5-19); Aspartate Amino Transferase 20 U/L (0-32); Blood Urea Nitrogen 4 mg/dL (6-20); Calcium 7.4 mg/dL (8.5-10.5); Carbon Dioxide 22 mmol/L (22-29); Chloride 107 mmol/L (98-107); Globulin 2.3 g/dL (1.3-4.6); Glomerular Filtration Rate 97.6 mL/min (90-130); Glucose 92 mg/dL (65-115); Osmolality Calculated 279 mOsm/kg (285-295); Potassium 3.8 mmol/L (3.5-5.1); Sodium 136 mmol/L (136-145); Total Bilirubin 0.5 mg/dL (0.15-1.2); Total Protein 4.7 g/dL (6.6-8.7)
[2021-03-28 04:44] LABS: Slide Review Slide Review Perform
[2021-03-28] MEDS: sodium chlor 0.9% + KCl 20 mEq 20 MEQ/1,000 ML BAG 150 MEQ IV ×3 (04:50→18:18)
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
--- NOTE | 2021-03-28 08:25 | PC.NURSE ---
Physician Rounding Dr. Guerra and this nurse at bedside discussing plan of care with Ms. Aquino. Plans to transfer patient to Med Surg floor later today. Patient complains of abdomen pain, cough, diarrhea, headache and still feeling hot despite being afebrile overnight. Dr. Guerra verbalizes plan to test for covid via PCR, as well as to test stool due to complaints of diarrhea-see orders. New orders to place patient back on contact/droplet isolation at this time. Pt verbalizes understanding. Will continue to monitor.
[2021-03-28] MEDS: phosphorus 250 mg Tablet PO ×2 (08:27→17:16)
[2021-03-28] MEDS: acetaminophen 325 mg Tablet 650 MG PO (08:28)
--- NOTE | 2021-03-28 08:54 | P.PN_ITS ---
Subjective Subjective: Interval history: She is overall gradually improving, abdominal pain is not as severe, however, abdomen feels bloated. She also is having chills. Reports headache. Yesterday had the first bowel movement, reports it was loose. She cannot tell if it was watery. Denies any blood in the stool. Not vomiting. Has eaten so far and tolerated the oral intake. Reports yesterday started having some cough. Vitals/I&O/Wt Last Vital Signs Temp 98.8 F 03/28/21 07:00 Pulse 64 03/28/21 08:00 Resp 18 03/28/21 08:00 BP 122/79 03/28/21 08:00 Pulse Ox 93 03/28/21 08:00 03/27/21 03/28/21 03/28/21 22:59 06:59 14:59 Intake Total 1530 / 3310 1517.5 / 4827.5 Output Total 2300 / 2300 Balance 1530 / 3310 -782.5 / 2527.5 Physical Exam Const: COMMON NORMALS: no acute distress and patient oriented x3 OTHER: Sleeping. Wakes up to voice. In some discomfort. HENMT: COMMON NORMALS: oropharynx normal Neck/C-Spine: COMMON NORMALS: no JVD Resp: COMMON NORMALS: normal respiratory effort and clear to auscultation bilaterally AUSCULTATION: clear to auscultation bilaterally Cardio: COMMON NORMALS: no JVD, regular rhythm, S1 normal heart sound present, S2 normal heart sound present and No murmurs present (Cardio) RHYTHM: regular rhythm HEART SOUNDS: S1 normal heart sound present and S2 normal heart sound present GI: COMMON NORMALS: Normal to inspection, nondistended, normoactive bowel sounds present, Soft to palpation and non-tender PALPATION: Yes Soft to palpation Extremity: COMMON NORMALS: no joint enlargement and no pedal edema Neuro: COMMON NORMALS: patient oriented x3 and moves all extremities Skin: COMMON NORMALS: no rashes or lesions noted GENERAL SKIN EXAM: no rashes or lesions noted Data : 03/28/21 04:15 03/28/21 04:15 Micro: Microbiology 03/25/21 01:15 Urine Culture - Final Urine,Clean Catch 03/26/21 05:50 Blood Culture - Preliminary Blood NEGATIVE TO DATE A&P Assessment and plan (1) Pyelonephritis of right kidney: Overall gradually improving. Her blood pressures are getting better. Fevers resolving. She reports still having chills, not having headache, cough, yesterday loose stool. Abdomen still with discomfort, bloating. Pain overall gradually getting better. Fever again 102.8 last night. Continue IV antibiotics. Since blood pressure stabilized may move out of ICU. Discussed with her so far urine cultures still negative. Discussed possibly we may not able to have the organism available to guide treatment. Additional assessments of loose stool, and assessment of COVID-19 by PCR as below. Continue IV fluids for now. Oral intake is tolerating. With soft blood pressure for now monitor in ICU. If improving may transfer for further care to medical floor. Symptomatic control of pain. Status: Acute (2) Loose stools: Reports having loose stool yesterday, abdominal bloating, will request stool studies. Only 1 loose bowel movement so far. Denies hematochezia, melena. Status: Acute (3) Sepsis: Sepsis is resolving, although last night had a fever of 102.8. So far no additional fever. Leukocytosis resolved. No tachycardia. No tachypnea. She is currently reporting chills, headache, yesterday had a loose stool. Abdominal bloating. Reports also yesterday developed cough. Rapid COVID-19 was negative, will assess PCR. Requesting stool studies. Treat complicated UTI as above. Status: Acute (4) Acute kidney injury: Resolved Status: Acute (5) Lactic acidosis: Status: Acute (6) Hypokalemia: Resolved Status: Acute (7) Hyponatremia: Resolved Status: Acute (8) Thrombocytopenia: Appears to stabilized around 93,000. Suspected related to sepsis. Has not received heparin products. Hemoglobin with some decrease today to 9.6. Will recheck later tonight. We will go ahead and request peripheral smear. LDH, haptoglobin Status: Acute Additional A&P Information 30-year-old female with past medical history of endometriosis and no other chronic medical conditions who presents with fever, chills, dysuria, right flank pain, muscle aches. DVT prophylaxis. Teds and SCDs. Early ambulation. CODE STATUS. She wants to be full code. Attestations Medical Necessity Statement*: Continue admission for assessment management of resolving sepsis, complicated UTI, assessment for possible GI infection, assessment of thrombocytopenia, new anemia. Coding Level of Care Code Acute National Sales Manager for [facility] Fwd Diagnoses Pyelonephritis of right kidney N12 Loose stools R19.5 Sepsis A41.9 Acute kidney injury N17.9 Lactic acidosis E87.2 Hypokalemia E87.6 Hyponatremia E87.1 Thrombocytopenia D69.6
--- NOTE | 2021-03-28 09:20 | PC.NURSE ---
COVID test Covid Swab collected and sent to Lab @[id number] 03/28/21. Pt tolerated well and educated on restriction of visitors at this time.
[2021-03-28 09:23] LABS: LAB Peripheral Smear Sent for Review
[2021-03-28 09:57] LABS: Lactate Dehydrogenase 168 U/L (135-214)
--- NOTE | 2021-03-28 14:01 | PC.NURSE ---
Report called to JOSE EDUARDO Galloway on the Medical surgical floor. Patient to be transferred to Room 273 pending room cleaning, to be notified when room is ready.
--- NOTE | 2021-03-28 14:55 | PC.NURSE ---
Transfer Patient transferred via wheelchair to Med Surg room 273 on contact/droplet precautions pending covid results. Pt transferred from wheelchair to bed with one assist. Patient belongings placed at bedside. Nurse Galloway notified. Patient tolerated well and A&Ox4 at time of transfer.
[2021-03-28 16:57] LABS: Basophils % 0.4 %; Eosinophils # 0.1 10^3/uL (0.0-0.8); Eosinophils % 1.6 %; Hematocrit 35.1 % (37.0-47.0); Hemoglobin 10.4 g/dL (11.5-15.3); Lymphocytes # 1.7 10^3/uL (0.8-4.8); Lymphocytes % 24.4 %; Mean Corpuscular HGB Conc 29.6 g/dL (30.0-36.0); Mean Corpuscular Hemoglobin 32.8 pg (28.0-34.0); Mean Corpuscular Volume 110.7 fL (81-99); Mean Platelet Volume 11.8 fL (7.4-10.4); Neutrophils # 4.09 10^3/uL (1.8-7.7); Nucleated Red Blood Cells % 0 %; Platelet Count 100 10^3/cmm (130-400); Red Blood Count 3.17 10^6/uL (4.1-5.3); Red Cell Distribution Width 13.7 % (12.1-15.1); White Blood Count 6.9 10^3/uL (4.0-10.0)
[2021-03-28 17:57] LABS: Slide Review Slide Review Perform
[2021-03-28] MEDS: LORazepam 2 mg/mL INJ 1 mL 1 MG IVP (22:19)
[2021-03-29 00:20] VITALS: BP 128/85; PULSE 73; RESP 22; TEMP 37.4; O2SAT 94
[2021-03-29 00:27] LABS: Vancomycin Trough 10.9 ug/mL (10-15)
[2021-03-29] MEDS: sodium chlor 0.9% + KCl 20 mEq 20 MEQ/1,000 ML BAG 150 MEQ IV ×2 (01:47→10:38)
[2021-03-29] MEDS: vancomycin 1,000 MG in sodium chloride 0.9% 250 ML 250 MG IV ×2 (01:47→13:22)
--- NOTE | 2021-03-29 03:04 | PC.NURSE ---
0100 medications were administered late and had to be re-timed due to loss of IV access. This nurse attempted to place IV and was unsuccessful, Charge nurse Annie notified and she attempted IV insertion and was unsuccessful, IV access was placed by Swabber JOSE EDUARDO Chew.
[2021-03-29 04:00] VITALS: BP 138/62; PULSE 82; RESP 22; TEMP 38; O2SAT 98
[2021-03-29] MEDS: piperacillin-tazobactam 3.375 GM in sodium chloride 0.9% (plus) 50 ML IV ×3 (04:26→17:33)
[2021-03-29 05:50] LABS: Basophils % 0.3 %; Eosinophils # 0.1 10^3/uL (0.0-0.8); Eosinophils % 1.6 %; Hematocrit 26.3 % (37.0-47.0); Hemoglobin 8.8 g/dL (11.5-15.3); Lymphocytes # 1.8 10^3/uL (0.8-4.8); Lymphocytes % 28.8 %; Mean Corpuscular HGB Conc 33.5 g/dL (30.0-36.0); Mean Corpuscular Hemoglobin 32.6 pg (28.0-34.0); Mean Corpuscular Volume 97.4 fL (81-99); Mean Platelet Volume 11.2 fL (7.4-10.4); Monocytes # 0.6 10^3/uL (0.2-0.9); Neutrophils # 3.57 10^3/uL (1.8-7.7); Neutrophils % 57.6 %; Nucleated Red Blood Cells % 0 %; Platelet Count 140 10^3/cmm (130-400); Red Cell Distribution Width 13.7 % (12.1-15.1); White Blood Count 6.2 10^3/uL (4.0-10.0)
[2021-03-29 06:05] LABS: Alanine Aminotransferase 19 U/L (0-33); Albumin Level 2.3 g/dL (3.5-5.2); Alkaline Phosphatase 69 IU/L (35-105); Anion Gap 10.5 (5-19); Aspartate Amino Transferase 25 U/L (0-32); Blood Urea Nitrogen 3 mg/dL (6-20); Calcium 7.1 mg/dL (8.5-10.5); Carbon Dioxide 22 mmol/L (22-29); Chloride 108 mmol/L (98-107); Globulin 2.2 g/dL (1.3-4.6); Glomerular Filtration Rate 116.6 mL/min (90-130); Glucose 90 mg/dL (65-115); Osmolality Calculated 280 mOsm/kg (285-295); Potassium 3.5 mmol/L (3.5-5.1); Sodium 137 mmol/L (136-145); Total Bilirubin 0.4 mg/dL (0.15-1.2); Total Protein 4.5 g/dL (6.6-8.7)
[2021-03-29 06:08] LABS: Slide Review Slide Review Perform
[2021-03-29 08:00] VITALS: BP 118/73; PULSE 64; RESP 16; TEMP 37.3; O2SAT 96
[2021-03-29] MEDS: phosphorus 250 mg Tablet PO ×2 (09:09→17:33)
[2021-03-29] MEDS: HYDROcodone-acetaminophen 5-325 mg Tablet 1 TAB PO ×2 (10:43→21:17)
[2021-03-29] MEDS: LORazepam 2 mg/mL INJ 1 mL 1 MG IVP (11:57)
[2021-03-29 12:00] VITALS: BP 114/77; PULSE 62; RESP 16; TEMP 37; O2SAT 97
--- NOTE | 2021-03-29 14:22 | P.PN_ITS ---
Subjective Subjective: Interval history: Reports her mood has been depressed. Weather and isolation have not been helping. We had a long conversation. She denies any thoughts of self-harm or suicidal ideation. Has dealt with depression in the past, but has not had any medication treatment. Not seeing psychiatry. States she would seek help in case there is any worsening in her condition or any thoughts of self-harm. I encouraged her to set up follow-up with [facility]. She states that she sometimes gets bad anxiety. Discussed with her that they may help manage this as well. She verbalized understanding. She otherwise is doing okay, but not back to normal, still right-sided abdominal pain. Appetite has not been the best, did not eat breakfast today, although feels this is more because of not injuring food. She states she is more used to eating more salads, veggies, fruits. Encouraged her to request for that on meal orders. Once isolation is lifted, perhaps family could help bring some of the meals she enjoys. Abdominal bloating otherwise is improved. Had again a loose stool yesterday. No vomiting. Vitals/I&O/Wt Last Vital Signs Temp 98.6 F 03/29/21 12:00 Pulse 62 03/29/21 12:00 Resp 16 03/29/21 12:00 BP 114/77 03/29/21 12:00 Pulse Ox 97 03/29/21 12:00 03/28/21 03/29/21 03/29/21 22:59 06:59 14:59 Intake Total 1250 / 2940 1812.5 / 4752.5 1217.5 / 1217.5 Output Total 900 / 900 Balance 1250 / 2940 912.5 / 3852.5 1217.5 / 1217.5 Physical Exam Const: COMMON NORMALS: no acute distress and patient oriented x3 OTHER: Awake. Mood is sad. HENMT: COMMON NORMALS: oropharynx normal Neck/C-Spine: COMMON NORMALS: no JVD Resp: COMMON NORMALS: normal respiratory effort and clear to auscultation bilaterally AUSCULTATION: clear to auscultation bilaterally Cardio: COMMON NORMALS: no JVD, regular rhythm, S1 normal heart sound present, S2 normal heart sound present and No murmurs present (Cardio) RHYTHM: regular rhythm HEART SOUNDS: S1 normal heart sound present and S2 normal heart sound present GI: COMMON NORMALS: Normal to inspection, nondistended, normoactive bowel sounds present, Soft to palpation and non-tender PALPATION: Yes Soft to palpation and Yes Tenderness to palpation present (GI) (R side) Extremity: COMMON NORMALS: no joint enlargement and no pedal edema Neuro: COMMON NORMALS: patient oriented x3 and moves all extremities Skin: COMMON NORMALS: no rashes or lesions noted GENERAL SKIN EXAM: no rashes or lesions noted Data : 03/29/21 04:48 03/29/21 04:48 Micro: Microbiology 03/28/21 16:32 Stool Lactoferrin - Final Stool - Stool Aspirate A&P Assessment and plan (1) Pyelonephritis of right kidney: Right-sided pain somewhat persists. Overall blood pressure is improved. Remains without leukocytosis. Again spiked a fever 100.4 Fahrenheit early this morning. Still no growth on urine cultures. Continue antibiotics at this time. We are awaiting results of COVID-19 PCR as s he is having some loose stools, was having headache, cough earlier. In case this is negative, and in case stool studies are nonrevealing, if abdominal pain is persisting, discussed with her consideration of repeating abdominal CT scan. She is agreeable with the plan. Continue IV antibiotics. DC IV fluids. Symptomatic control of pain. Status: Acute (2) Loose stools: Reports yesterday again loose stool. Collected samples for C. difficile, culture, ova and parasite. Lactoferrin is negative. Pending COVID-19 PCR. Status: Acute (3) Sepsis: Overall gradual improvement, although with recurrences of fevers, still some persistence of malaise. Loose stool. Right side abdominal discomfort. Headache appears better. Cough somewhat better. Pending additional assessments for COVID-19 by PCR, as well as stool studies. Urine cultures unfortunately unrevealing. Continue antibiotic coverage for pyelonephritis empirically at this time. In case other studies unrevealing, and still persistence of symptoms/recurrence of fevers, may consider repeating additional imaging. Status: Acute (4) Acute kidney injury: Resolved Status: Acute (5) Lactic acidosis: Status: Acute (6) Hypokalemia: Resolved Status: Acute (7) Hyponatremia: Resolved Status: Acute (8) Thrombocytopenia: Now improving. Suspected related to sepsis. Has not received heparin products. Peripheral smear with mild microcytosis, no schistocytes. LDH, haptoglobin Status: Acute Additional A&P Information 30-year-old female with past medical history of endometriosis and no other c hronic medical conditions who presents with fever, chills, dysuria, right flank pain, muscle aches. DVT prophylaxis. Teds and SCDs. Early ambulation. full code. Attestations Medical Necessity Statement*: Continue admission for assessment management of improving sepsis, complicated UTI with pyelonephritis, additional assessment of recurrent loose stools, recurrent fever, assessment of COVID-19 by PCR. Coding Level of Care Code Acute Motor Driver for [facility] Fwd Exam Comprehensive Diagnoses Pyelonephritis of right kidney N12 Loose stools R19.5 Sepsis A41.9 Acute kidney injury N17.9 Lactic acidosis E87.2 Hypokalemia E87.6 Hyponatremia E87.1 Thrombocytopenia D69.6
[2021-03-29 14:53] LABS: Coronavirus Test Green County Not Detected
[2021-03-29 16:00] VITALS: BP 142/87; PULSE 69; RESP 18; TEMP 37; O2SAT 97
[2021-03-29 19:37] VITALS: BP 129/82; PULSE 75; RESP 16; TEMP 36.9; O2SAT 99
[2021-03-30] VITALS (7 sets, daily range): BP systolic 111–144; BP diastolic 66–87; PULSE 65–82; RESP 16–20; TEMP 36.6–37; O2SAT 94–98
[2021-03-30] MEDS: vancomycin 1,000 MG in sodium chloride 0.9% 250 ML 250 MG IV ×2 (01:05→14:29)
[2021-03-30] MEDS: piperacillin-tazobactam 3.375 GM in sodium chloride 0.9% (plus) 50 ML IV ×3 (02:18→17:22)
[2021-03-30] MEDS: HYDROcodone-acetaminophen 5-325 mg Tablet 1 TAB PO ×2 (04:38→17:28)
[2021-03-30 05:27] LABS: Basophils % 0.3 %; Eosinophils # 0.2 10^3/uL (0.0-0.8); Eosinophils % 2.9 %; Hematocrit 26.4 % (37.0-47.0); Hemoglobin 8.8 g/dL (11.5-15.3); Lymphocytes # 2.1 10^3/uL (0.8-4.8); Lymphocytes % 32.2 %; Mean Corpuscular HGB Conc 33.3 g/dL (30.0-36.0); Mean Corpuscular Hemoglobin 32.2 pg (28.0-34.0); Mean Corpuscular Volume 96.7 fL (81-99); Monocytes # 0.6 10^3/uL (0.2-0.9); Monocytes % 9.5 %; Neutrophils # 3.52 10^3/uL (1.8-7.7); Neutrophils % 54.2 %; Nucleated Red Blood Cells % 0 %; Platelet Count 214 10^3/cmm (130-400); Red Blood Count 2.73 10^6/uL (4.1-5.3); Red Cell Distribution Width 13.6 % (12.1-15.1); White Blood Count 6.5 10^3/uL (4.0-10.0)
[2021-03-30 05:49] LABS: Alanine Aminotransferase 18 U/L (0-33); Albumin Level 2.4 g/dL (3.5-5.2); Alkaline Phosphatase 71 IU/L (35-105); Anion Gap 11.4 (5-19); Aspartate Amino Transferase 18 U/L (0-32); Blood Urea Nitrogen 2 mg/dL (6-20); Calcium 7.4 mg/dL (8.5-10.5); Carbon Dioxide 24 mmol/L (22-29); Chloride 107 mmol/L (98-107); Globulin 2.5 g/dL (1.3-4.6); Glomerular Filtration Rate 116.6 mL/min (90-130); Glucose 88 mg/dL (65-115); Osmolality Calculated 284 mOsm/kg (285-295); Potassium 3.4 mmol/L (3.5-5.1); Sodium 139 mmol/L (136-145); Total Bilirubin 0.3 mg/dL (0.15-1.2); Total Protein 4.9 g/dL (6.6-8.7)
[2021-03-30 06:02] LABS: Slide Review Slide Review Perform
[2021-03-30] MEDS: phosphorus 250 mg Tablet PO ×2 (08:20→17:22)
[2021-03-30] MEDS: ibuprofen 200 mg Tablet 400 MG PO (10:28)
--- NOTE | 2021-03-30 11:34 | PC.NURSE ---
Abdomen pain level is a 7.
--- NOTE | 2021-03-30 21:37 | PM.PN ---
Subjective Subjective: Interval history: Having severe headache today, frontal, on the left side, but with photosensitivity as well. Bothered by lower back pain. Vitals/I&O/Wt Last Vital Signs Temp 97.9 F 03/30/21 20:00 Pulse 66 03/30/21 20:00 Resp 18 03/30/21 20:00 BP 139/87 03/30/21 20:00 Pulse Ox 98 03/30/21 20:00 03/30/21 03/30/21 03/30/21 06:59 14:59 22:59 Intake Total 300 / 2177.5 650 / 650 370 / 1020 Balance 300 / 2177.5 650 / 650 370 / 1020 Physical Exam Const: COMMON NORMALS: no acute distress and patient oriented x3 OTHER: Awake. Bothered by headache. HENMT: COMMON NORMALS: oropharynx normal Neck/C-Spine: COMMON NORMALS: no JVD Resp: COMMON NORMALS: normal respiratory effort and clear to auscultation bilaterally AUSCULTATION: clear to auscultation bilaterally Cardio: COMMON NORMALS: no JVD, regular rhythm, S1 normal heart sound present, S2 normal heart sound present and No murmurs present (Cardio) RHYTHM: regular rhythm HEART SOUNDS: S1 normal heart sound present and S2 normal heart sound present GI: COMMON NORMALS: Normal to inspection, nondistended, normoactive bowel sounds present, Soft to palpation and non-tender PALPATION: Yes Soft to palpation and Yes Tenderness to palpation present (GI) (R side) Extremity: COMMON NORMALS: no joint enlargement and no pedal edema Neuro: COMMON NORMALS: patient oriented x3 and moves all extremities Skin: COMMON NORMALS: no rashes or lesions noted GENERAL SKIN EXAM: no rashes or lesions noted Data : 03/30/21 04:30 03/30/21 04:30 Micro: Microbiology 03/25/21 14:40 Blood Culture - Final Blood NO GROWTH AFTER 5 DAYS 03/28/21 16:32 Enteric Pathogens (PCR) - Final Stool Routine Collection 03/28/21 16:32 Parasite Antigen Panel - Final Stool Routine Collection A&P Assessment and plan (1) Headache: Bothered by severe headache today, with photosensitivity, with some response ibuprofen, at the time of my visit 05/11. Bothered by lower back pain. Low-grade fever yesterday. Discussed with her that the headache sounds more like migraine, however, with recent fever, sepsis, would like to monitor further to make sure is not spiking further fevers. With lower back pain, will additionally assess CT L-spine, as this pain appears new since this illness. Assess for any discitis, paraspinal abscess, etc., although perhaps less likely given negative blood cultures. COVID-19 PCR negative. Status: Acute (2) Pyelonephritis of right kidney: Fevers so far have not recurred, with last fever 100.4 yesterday morning. Today with other symptoms as above. Right-sided pain somewhat persists. Overall blood pressure is improved. Remains without leukocytosis. Again spiked a fever 100.4 Fahrenheit early this morning. Still no growth on urine cultures. Continue antibiotics at this time. We are awaiting results of COVID-19 PCR as she is having some loose stools, was having headache, cough earlier. In case this is negative, and in case stool studies are nonrevealing, if abdominal pain is persisting, discussed with her consideration of repeating abdominal CT scan. She is agreeable with the plan. Continue IV antibiotics. Symptomatic control of pain. Status: Acute (3) Loose stools: Loose stools have now resolved. Stool studies unremarkable with negative C. difficile, stool culture, ova and parasites, negative lactoferrin. Negative COVID-19 PCR. Status: Acute (4) Sepsis: Sepsis so far appears to have resolved. Suspected to be secondary to complicated urinary tract infection, although no growth on culture. Assessment of additional symptoms as above for possible other sources. Overall gradual improvement, although with recurrences of fevers, still some persistence of malaise. Loose stool. Right side abdominal discomfort. Headache appears better. Cough somewhat better. Pending additional assessments for COVID-19 by PCR, as well as stool studies. Urine cultures unfortunately unrevealing. Continue antibiotic coverage for pyelonephritis empirically at this time. In case other studies unrevealing, and still persistence of symptoms/recurrence of fevers, may consider repeating additional imaging. Status: Acute (5) Acute kidney injury: Resolved Status: Acute (6) Lactic acidosis: Status: Acute (7) Hypokalemia: Resolved Status: Acute (8) Hyponatremia: Resolved Status: Acute (9) Thrombocytopenia: Now improving. Suspected related to sepsis. Has not received heparin products. Peripheral smear with mild microcytosis, no schistocytes. LDH, haptoglobin Status: Acute Additional A&P Information 30-year-old female with past medical history of endometriosis and no other chronic medical conditions who presents with fever, chills, dysuria, right flank pain, muscle aches. DVT prophylaxis. Teds and SCDs. Early ambulation. full code. Attestations Medical Necessity Statement*: Continue admission for assessment management of severe headache, assessment for additional sources of resolving sepsis, recurrent fevers. Coding Level of Care Code Acute Second Crusher for [facility] Fwd Diagnoses Headache R51.9 Pyelonephritis of right kidney N12 Loose stools R19.5 Sepsis A41.9 Acute kidney injury N17.9 Lactic acidosis E87.2 Hypokalemia E87.6 Hyponatremia E87.1 Thrombocytopenia D69.6
[2021-03-31] MEDS: vancomycin 1,000 MG in sodium chloride 0.9% 250 ML 250 MG IV (01:40)
[2021-03-31] MEDS: piperacillin-tazobactam 3.375 GM in sodium chloride 0.9% (plus) 50 ML IV ×2 (02:47→10:31)
[2021-03-31 04:00] VITALS: BP 121/72; PULSE 80; RESP 16; TEMP 37.3; O2SAT 94
[2021-03-31 05:21] LABS: Basophils % 0.4 %; Eosinophils # 0.2 10^3/uL (0.0-0.8); Eosinophils % 3.1 %; Hematocrit 26.6 % (37.0-47.0); Lymphocytes # 1.7 10^3/uL (0.8-4.8); Mean Corpuscular HGB Conc 33.8 g/dL (30.0-36.0); Mean Corpuscular Hemoglobin 32.6 pg (28.0-34.0); Mean Corpuscular Volume 96.4 fL (81-99); Mean Platelet Volume 10.1 fL (7.4-10.4); Monocytes # 0.6 10^3/uL (0.2-0.9); Monocytes % 8.9 %; Neutrophils # 4.31 10^3/uL (1.8-7.7); Neutrophils % 62.6 %; Nucleated Red Blood Cells % 0 %; Platelet Count 311 10^3/cmm (130-400); Red Blood Count 2.76 10^6/uL (4.1-5.3); Red Cell Distribution Width 13.4 % (12.1-15.1); White Blood Count 6.9 10^3/uL (4.0-10.0)
[2021-03-31 05:44] LABS: Alanine Aminotransferase 18 U/L (0-33); Albumin Level 2.7 g/dL (3.5-5.2); Alkaline Phosphatase 72 IU/L (35-105); Anion Gap 12.6 (5-19); Aspartate Amino Transferase 20 U/L (0-32); Blood Urea Nitrogen 3 mg/dL (6-20); Calcium 7.9 mg/dL (8.5-10.5); Carbon Dioxide 25 mmol/L (22-29); Chloride 107 mmol/L (98-107); Globulin 2.7 g/dL (1.3-4.6); Glomerular Filtration Rate 143.9 mL/min (90-130); Glucose 90 mg/dL (65-115); Osmolality Calculated 288 mOsm/kg (285-295); Potassium 3.6 mmol/L (3.5-5.1); Sodium 141 mmol/L (136-145); Total Bilirubin 0.2 mg/dL (0.15-1.2); Total Protein 5.4 g/dL (6.6-8.7)
[2021-03-31 06:09] LABS: Slide Review Slide Review Perform
--- NOTE | 2021-03-31 08:00 | CT_ITS ---
WS: [id number] CT lumbar spine with contrast. HISTORY: back pain, fever TECHNIQUE: Contiguous 2.5 mm axial imaging performed from T12 through the mid sacral level. Bone and soft tissue windows reviewed. Sagittal and coronal reformats are submitted and reviewed. DLP: 1597.28 mGy.cm Contrast: Omnipaque 300; [address] scans at [facility] use at least one of these dose optimization techniques: automat ed exposure control; mA and/or kV adjustment per patient size (includes targeted exams where dose is matched to clinical indication); or iterative reconstruction. COMPARISON: None available. Normal lumbar alignment. No air within the disc spaces. No significant narrowing or degenerative wagner ges in the bones. No lytic areas or adjacent soft tissue inflammation. No paravertebral soft tissue i nflammatory changes. The visualized aorta is negative for inflammatory aneurysm. No central or foraminal stenosis. Small bilateral pleural effusions are noted at the lung bases. On the vehicle glass technician localizer slightly greate r effusion on the RIGHT. These pleural effusions are new since the CT of 03/25/2021. Pyelonephritis de scribed on the prior study has nearly completely resolved involving the RIGHT kidney. Mild persistent inflammatory changes involving the proximal RIGHT ureter. CT/CT lumbar spine w con [id number]: 1. No CT evidence for lumbar osteomyelitis or discitis. 2. Small bilateral pleural effusions are new since 03/25/2021.
[2021-03-31 08:20] VITALS: BP 137/83; PULSE 65; RESP 17; TEMP 36.7; O2SAT 97
[2021-03-31] MEDS: iohexol 300 mg/mL 100 mL Btl IV (08:23)
[2021-03-31] MEDS: phosphorus 250 mg Tablet PO (10:31)
[2021-03-31 12:00] VITALS: BP 128/75; PULSE 69; RESP 18; TEMP 36.4; O2SAT 96
--- NOTE | 2021-03-31 12:41 | PM.DCS ---
Discharge Providers Date of Admission: 03/25/21 19:14 Date of Discharge: March 31, 2021 Attending Provider at Admission: Pasquale Ray Attending Provider at Discharge: Luciano Guerra Diagnoses at Discharge Discharge Diagnosis (1) Headache: Status: Acute (2) Pyelonephritis of right kidney: Status: Acute (3) Loose stools: Status: Acute (4) Sepsis: Status: Acute (5) Acute kidney injury: Status: Acute (6) Lactic acidosis: Status: Acute (7) Hypokalemia: Status: Acute (8) Hyponatremia: Status: Acute (9) Thrombocytopenia: Status: Acute Reason for Visit Reason for Visit: VOMITING, SHAKING, IN PAIN, FEVER (4 DAYS) Hospital Course Hospital Course Pleasant 30-year-old lady with history of endometriosis, tubal ligation, current smoker, not much other past medical history was admitted and treated for severe sepsis secondary topyelonephritis, complicated urinary tract infection, with lactic acidosis on presentation, treated with IV fluid challenge, IV antibiotics with Zosyn, vancomycin. On presentation with hypokalemia, hyponatremia, thrombocytopenia, mild acute kidney injury, sinus tachycardia. With noted transient worsening of anemia, hemoglobin stabilized around 9, possibly dilutional, was worked up for hemolysis, but without finding of this. Mild macrocytosis on peripheral smear. No schistocytes. With recurrent fever spikes, and during hospitalization also developed headache, dry cough, diarrhea, was assessed by COVID-19 PCR which was negative. Stool studies were assessed and showed negative lactoferrin, negative stool culture, negative ova and parasite. Blood cultures remain negative. During hospitalization also developed new back pain which due to recurrent fever spikes was assessed by CT lumbar spine without finding of osteomyelitis or discitis. Urine cultures had not grown an organism. She continued empirically on Zosyn and vancomycin. Her abdominal pain/right flank pain gradually improved. She has been tolerating oral diet. Other symptoms have resolved, and today she is free of any headache, has no back pain, no abdominal pain, and overall feeling much better, asking to return home. She will complete antibiotic course with ciprofloxacin on discharge empirically after complicated UTI, pyelonephritis. Discussed with her small risk of possible other source of infection which had not been identified, although this is perhaps less likely, but she states will remain vigilant, and in case of any concerning symptoms will seek medical attention. Please follow-up her blood counts, follow-up on anemia. Please reassess renal function after recovery from KARLI. Please assist her with smoking cessation. Physical Exam Const: COMMON NORMALS: no acute distress and patient oriented x3 GENERAL APPEARANCE: cooperative and comfortable ORIENTATION/CONSCIOUSNESS: Yes awake HENMT: COMMON NORMALS: oropharynx normal Neck/C-Spine: COMMON NORMALS: no JVD Resp: COMMON NORMALS: normal respiratory effort and clear to auscultation bilaterally AUSCULTATION: clear to auscultation bilaterally Cardio: COMMON NORMALS: no JVD, regular rhythm, S1 normal heart sound present, S2 normal heart sound present and No murmurs present (Cardio) RHYTHM: regular rhythm HEART SOUNDS: S1 normal heart sound present and S2 normal heart sound present GI: COMMON NORMALS: Normal to inspection, nondistended, normoactive bowel sounds present, Soft to palpation and non-tender PALPATION: Yes Soft to palpation Extremity: COMMON NORMALS: no joint enlargement and no pedal edema Neuro: COMMON NORMALS: patient oriented x3 and moves all extremities Skin: COMMON NORMALS: no rashes or lesions noted GENERAL SKIN EXAM: no rashes or lesions noted Discharge Data Data Completed and Pending: Completed Studies During Hospitalization Category Date Time Status CT angio chest w abd pel w con Urge nt Cat Scan 03/25/21 15:[address] lumbar spine w con [id number] Routine Cat Scan 03/31/21 08:00 Completed Pending at discharge Category Date Time Status Complete Blood Co unt w/Auto AM LABS Lab 04/01/21 04:00 Ordered Complete Blood Co unt w/Auto AM LABS Lab 04/02/21 04:00 Ordered Comprehensive Met abolic Panel AM LA BS Lab 04/01/21 04:00 Ordered Comprehensive Met abolic Panel AM LA BS Lab 04/02/21 04:00 Ordered Miscellaneous Janelle t Routine Lab 03/28/21 16:30 Received Vancomycin Trough Timed Lab 04/01/21 00:00 Ordered Labs from last 24 hours 03/31/21 03/31/21 04:51 04:51 WBC 6.9 RBC 2.76 L Hgb 9.0 L Hct 26.6 L MCV 96.4 MCH 32.6 MCHC 33.8 RDW 13.4 Plt Count 311 MPV 10.1 Neut % (Auto) 62.6 Lymph % (Auto) 24.0 Cochran % (Auto) 8.9 Eos % (Auto) 3.1 Baso % (Auto) 0.4 Neut # (Auto) 4.31 Lymph # (Auto) 1.7 Cochran # (Auto) 0.6 Eos # (Auto) 0.2 Baso # (Auto) 0.0 Nucleated RBC % (a uto) 0 Nucleated RBCs # 0.0 Sodium 141 Potassium 3.6 Chloride 107 Carbon Dioxide 25 Anion Gap 12.6 BUN 3 L Creatinine 0.5 GFR Calculation 143.9 H Glucose 90 Calculated Osmolal ity 288 Calcium 7.9 L Total Bilirubin 0.2 AST 20 ALT 18 Alkaline Phosphata se 72 Total Protein 5.4 L Albumin 2.7 L Globulin 2.7 Vitals: Last Vital Signs Temp 97.5 F L 03/31/21 12:00 Pulse 69 03/31/21 12:00 Resp 18 03/31/21 12:00 BP 128/75 03/31/21 12:00 Pulse Ox 96 03/31/21 12:00 Discharge Plan Discharge Patient Disposition: Home Condition: Stable Prescriptions: New acetaminophen 325 mg Tablet 325 mg PO Q6H PRN (Reason: Mild/Mod Pain Or Temp >/= 101) Qty: 30 RF: 0 ciprofloxacin HCl [Cipro] 500 mg tablet 500 mg PO BID Qty: 8 RF: 0 Continued NyQuil 7.5-60-30-1,000 mg/30 mL Liquid 30 ml PO PRN RF: 0 Discontinued ibuprofen 800 mg Tablet 800 mg PO PRN RF: 0 NyQuil Liquicaps Capsule 1 - 2 cap PO PRN RF: 0 Discharge Orders: Discharge Order (Routine); Ordered 03/31/21 Ordered By: Luciano Guerra Referrals: Primary, provider [Other] - 4-7 days Discharge Diet: Advance as tolerated Discharge Activity: Increase activity as tolerated Patient Instructions: How to Stop Smoking (GEN), Cigarette Smoking and Your Health (GEN), Acute Pyelonephritis (GEN), Sepsis (GEN) Activity Restrictions/Additional Instructions: Please seek medical attention in case of any return of any concerning symptoms, fever, abdominal pain, vomiting, inability to tolerate food, severe headache, back pain, or anything else. There is small risk of infection being elsewhere and only partially treated by antibiotic since urinary cultures did not show any exact organism. You have been improving and should hopefully continue to do so, however, in case of any worsening maintain a low threshold to seek medical attention. Please follow-up with your primary provider in office to monitor your recovery. Please have your primary provider follow-up your kidney function after acute kidney injury which so far has resolved. Have them also follow-up your blood counts which so far have been recovering well after being decreased due to sepsis although anemia persists. Please stop smoking as smoking exposes you to risk of cardiovascular disease, heart attack, stroke, various cancers, and other complications. Please follow-up with your primary provider to assist you to stop smoking. Discharge Attestations Time Spent in Discharge Care*: greater than 30 min Quality Metrics Clinical Quality Measures During this hospital stay, did patient experience: None Coding Level of Care Code Acute Chg FW DC note Diagnoses Headache R51.9 Pyelonephritis of right kidney N12 Loose stools R19.5 Sepsis A41.9 Acute kidney injury N17.9 Lactic acidosis E87.2 Hypokalemia E87.6 Hyponatremia E87.1 Thrombocytopenia D69.6
[2021-03-31 14:41] VITALS: BP 128/75; PULSE 69; RESP 18; TEMP 36.4; O2SAT 96
== END 2021-03-31 13:54 | disposition home or self-care (01) | DRG 872 ==
LOC: ER 14:30 → ICU 19:43 → MEDSURG 03-28 14:58
PROVIDERS: Family Medicine; Admitting Provider Internal Medicine; Emergency Provider Family Medicine; Visit Provider Internal Medicine
DX: A41.9 Sepsis, unspecified organism (principal); N10 Acute pyelonephritis; N39.0 Urinary tract infection, site not specified; E87.1 Hypo-osmolality and hyponatremia; N17.9 Acute kidney failure, unspecified; E87.2 Acidosis; R65.20 Severe sepsis without septic shock; Z98.51 Tubal ligation status; E87.6 Hypokalemia; E86.0 Dehydration; D69.59 Other secondary thrombocytopenia; D64.9 Anemia, unspecified; F32.9 Major depressive disorder, single episode, unspecified; R19.5 Other fecal abnormalities; R51.9 Headache, unspecified; M54.5 Low back pain; F17.210 Nicotine dependence, cigarettes, uncomplicated
CPT/HCPCS: 36415; 71275; 72132; 74177; 80053; 80202; 80500; 81001; 82550; 83010; 83605; 83615; 83630; 83690; 83735; 84100; 84145; 84311; 84703; 85007; 85025; 85378; 85610; 86140; 86850; 86900; 87040; 87086; 87426; 87506; 87635; 87804; 93005; 96365; 96375; 99285; C9113; J1885; J2060; J2270; J2405; J2543; J3370; J3475; J3480; J7030; J7050; Q9967